=== PATIENT | male | born 1970 | race Hispanic/Latino ===

== ENCOUNTER 2018-02-15 21:03 | Emergency (ER) | payer OTHER ==
--- OUTSIDE RECORDS SUMMARY | 2018-02-15 21:04 | XMS REPORT | Clinical Summary ---
:1970 Author Organization [facility] Address [address] [place] [address] Phone Care Team Providers Name Role Phone Unavailable Primary Care Provider Unavailable Allergies No Known Allergies Current Medications Prescription Sig. Disp. Refills Start Date End Date Status lisinopril Take 40 mg by Active (PRINIVIL,ZESTRIL) mouth daily. 40 MG tablet metoprolol Take 50 mg by Active (LOPRESSOR) 50 MG mouth 2 (two) tablet times daily. aspirin 81 MG EC Take 81 mg by Active tablet mouth daily. atorvastatin Take 1 tablet 90 tablet 3 07/20/2017 07/20/2018 Active (LIPITOR) 40 MG (40 mg total) tablet by mouth daily. prasugrel (EFFIENT) Take 1 tablet 90 tablet 0 07/20/2017 Active 10 mg Tab tablet (10 mg total) by mouth daily. simvastatin (ZOCOR) Take 40 mg by 07/19/2017 Discontinued 40 MG tablet mouth nightly. amLODIPine Take 1 tablet 30 tablet 11 06/25/2016 06/25/2017 (NORVASC) 10 MG (10 mg total) tablet by mouth daily. Active Problems Problem Noted Date STEMI (ST elevation myocardial infarction) ([facility]) 07/18/2017 Acute pulmonary insufficiency following thoracic surgery ([facility]) 06/21/2016 Acute post-operative pain 06/21/2016 Cardiogenic shock ([facility]) 06/21/2016 Hypertensive urgency 06/21/2016 Thrombocytopenia ([facility]) 06/21/2016 SIRS (systemic inflammatory response syndrome) ([facility]) 06/21/2016 Coronary artery disease 06/20/2016 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) Essential hypertension 06/13/2016 Dyslipidemia 06/13/2016 Encounters Date Type Specialty Care Team Description 07/18/2017 - Hospital Encounter Cardiac Intensive Me Kristiehran, 07/19/2017 Care MD 07/18/2017 Procedure Pass 07/18/2017 Surgery Satnam Tello CATH & SAROJ Renteria MD after 02/14/2017 Family History Medical History Relation Name Comments Diabetes Father Heart disease Father Diabetes Mother Relation Name Status Comments Father Mother Social History Tobacco Use Types Packs/Day Years Used Date Former Smoker Quit: 06/21/1996 Comments: quit 25 years ago Sex Assigned at Date Recorded Not on file Last Filed Vital Signs Vital Sign Reading Time Taken Blood Pressure 157/106 07/19/2017 11:56 AM BLOCK CUTTER Pulse 51 07/19/2017 12:00 PM BLOCK CUTTER Temperature 36.9 C (98.4 F) 07/19/2017 12:00 PM BLOCK CUTTER Respiratory Rate 15 07/19/2017 12:00 PM BLOCK CUTTER Oxygen Saturation 99% 07/19/2017 12:00 PM BLOCK CUTTER Inhaled Oxygen Concentration - - Weight 133.3 kg (293 lb 14 oz) 07/19/2017 5:00 AM BLOCK CUTTER Height 162.6 cm (5' 4") 07/18/2017 4:16 PM BLOCK CUTTER Body Mass Index 50.44 07/19/2017 5:00 AM BLOCK CUTTER Plan of Treatment Health Maintenance Due Date Last Done Comments INFLUENZA VACCINE 02/09/2018 Implants Implanted Type Area Cooking Chef Device Expiration Model / Identifier Date Serial / Lot Device Clsr Angio-Seal Vip 6fr [id number] - [id number] Cardiovascular Right: ST MARIUM [id number] 03/11/2018 [id number] / Implanted: Qty: 1 on 07/18/2017 by Satnam Tello MD Coronary MED: CARDIAC / SURG [id number] Synergy Stents-Coronary N/A: [place] [id number] 02/10/2018 [id number] / Implanted: Qty: 1 on 07/18/2017 by Satnam Tello MD Coronary SCIENTIFIC / [id number] Procedures Procedure Name Priority Date/Time Associated Diagnosis Comments L CATH & PCI 07/18/2017 1:40 PM BLOCK CUTTER STEMI after 02/14/2017 Results CARDIAC CATH REPORT - SCAN (07/23/2017 9:01 PM)RHYTHM STRIP - SCAN (07/22/2017 9:10 AM)ECHOCARDIOGRAM REPORT - SCAN (07/21/2017 9:20 AM)2D Echo W/Doppler(CW /PW/Color) (07/19/2017 9:30 AM) Component Value Ref Range Ejection Fraction Specimen Performing Laboratory [facility] ECHO [facility] MKCKMARTHA CPACS Narrative Transthoracic Echocardiography Report (TTE) Demographics Patient DEMETRIUS Pennington Date of Study07/19/2017 DONNA Gender Male Visit [id number] Race Unknown [id number] Number Date of 1970 [facility] Physician JOSE ALBERTO Friedman Age 47 year(s) SonographerJuan Ramirez Interpreting Physician JULIÁN Berumen Procedure Type of Study TTE procedure:2DECHO W DOPPLER(CW/PW/COLOR) (DIVINA) Indications:Evaluation of LV Function Post AMI. Clinical History HGB 13.2 HCT 40.3 % CAD HLD HTN STROKE Contrast Medium: Definity. Height: 64 inches Weight: 132.9 kg (293 lbs) BSA: 2.3 m^2 BMI: 50.29 kg/m^2 HR: 52 bpm BP: 164/97 mmHg Summary Regular sinus rhythm during the exam. Unable to estimate peak systolic PA pressure; inadequate TR velocity signal. Essentially normal exam. LV endocardium is well visualized with IV ultrasound enhancing agent. Normal left ventricular chamber size. Normal wall thickness. Normal overall left ventricular systolic function. No apparent segmental wall motion abnormalities. LVEF by Farmer's method of disk assessment is normal (>60%) . Normal diastolic function. No significant pericardial effusion is visualized. Signature Findings Technical Quality: Technically fair exam. Rhythm/BPRegular sinus rhythm during the exam. Left Ventricle LV endocardium is well visualized with IV ultrasound enhancing agent. Normal left ventricular chamber size. Normal wall thickness. Normal overall left ventricular systolic function. No apparent segmental wall motion abnormalities. LVEF by Farmer's method of disk assessment is normal (>60%) . Normal diastolic function. Left AtriumLA size is normal (16-34 ml/m2) . Right VentricleThe right ventricular chamber size and systolic function are within normal limits. Right Atrium RA size is normal. Aortic Valve Normal AoV structure and function. Mitral Valve Normal MV structure and function. Tricuspid ValveNormal TV structure and function. Unable to estimate peak systolic PA pressure; inadequate TR velocity signal. Pulmonic Valve Normal PV structure and function. AortaAortic root size (SInus of Valsalva diameter) is normal . PericardiumNo significant pericardial effusion is visualized. IVC/SVC/PA/PV/PleuralThe estimated RA pressure by IVC dynamics 5-10mmHg . Chambers/Structures Left Atrium LA Dimension: 4.59 cmLA Area: 23.77 cm^2 LA Volume: 78.16 ml LA Vol. Index: 34 ml/m^2 Left Ventricle LVIDd: 4.96 cm LVIDs: 3.19 cm LV Septum Diastolic: 0.97 cm LV PW Diastolic: 1.2 cm LV FS: 35.7 % LVEDV Farmer's:172.03 ml LVESV Farmer's:37.4 ml LVEDVI: 75 ml/ m^2 LVEF Farmer's: 78.3 %LVESVI: 16 ml/m^2 LVOT Diameter: 2.41 cm Aorta Ao Root S of Nel.: 3.18 cm Doppler/Quantitative Measurements Mitral Valve MV Peak E-Wave: 0.74 m/sMV Peak A-Wave: 0.58 m/s E/ A Ratio: 1.27 Peak Gradient: 2.19 mmHg Deceleration Time: 236.1 msec MV Papa. Peak: Tissue Doppler E' Lateral Velocity: 0.11 m/s E/E': 6.88 Aortic Valve Peak Velocity: 1.46 m/sMean Velocity: 0.92 m/s Peak Gradient: 8.47 mmHg Mean Gradient: 4.05 mmHg AV Area (continuity): 5.03 cm^2 AV VTI: 26.65 cm AV DVI: 1.1 LVOT Peak Velocity: 1.38 m/s Peak Gradient: 7.63 mmHg Mean Velocity: 0.9 m/sMean Gradient: 3.79 mmHg LVOT Diameter: 2.41 cmLVOT VTI: 29.43 cm LVOT Area: 4.56 cm^2LVOT SV:134.18 ml LVOT CO: 6.98 l/min LVOT CI: 3.03 l/min/m^2 Procedure Note Interface, External Ris In - 07/21/2017 8:41 AM CDT Transthoracic Echocardiography Report (TTE) Demographics Patient Name DEMETRIUS SERRA Date of Study 07/19/2017 DONNA Gender Male Visit Number [id number] Race Unknown Room Number 6215 Number Date of 1970 Referring [facility] Kristie Physician JOSE ALBERTO Friedman Age 47 year(s) 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 Clinical History HGB 13.2 HCT 40.3 % CAD HLD HTN STROKE Contrast Medium: Definity. Height: 64 inches Weight: 132.9 kg (293 lbs) BSA: 2.3 m^2 BMI: 50.29 kg/m^2 HR: 52 bpm BP: 164/97 mmHg Summary Regular sinus rhythm during the exam. Unable to estimate peak systolic PA pressure; inadequate TR velocity signal. Essentially normal exam. LV endocardium is well visualized with IV ultrasound enhancing agent. Normal left ventricular chamber size. Normal wall thickness. Normal overall left ventricular systolic function. No apparent segmental wall motion abnormalities. LVEF by Farmer's method of disk assessment is normal (>60%) . Normal diastolic function. No significant pericardial effusion is visualized. Signature Findings Technical Quality: Technically fair exam. Rhythm/BP Regular sinus rhythm during the exam. Left Ventricle LV endocardium is well visualized with IV ultrasound enhancing agent. Normal left ventricular chamber size. Normal wall thickness. Normal overall left ventricular systolic function. No apparent segmental wall motion abnormalities. LVEF by Farmer's method of disk assessment is normal (>60%) . Normal diastolic function. Left Atrium LA size is normal (16-34 ml/m2) . Right Ventricle The right ventricular chamber size and systolic function are within normal limits. Right Atrium RA size is normal. Aortic Valve Normal AoV structure and function. Mitral Valve Normal MV structure and function. Tricuspid Valve Normal TV structure and function. Unable to estimate peak systolic PA pressure; inadequate TR velocity signal. Pulmonic Valve Normal PV structure and function. Aorta Aortic root size (SInus of Valsalva diameter) is normal . Pericardium No significant pericardial effusion is visualized. IVC/SVC/PA/PV/Pleural The estimated RA pressure by IVC dynamics 5-10mmHg . Chambers/Structures Left Atrium LA Dimension: 4.59 cm LA Area: 23.77 cm^2 LA Volume: 78.16 ml LA Vol. Index: 34 ml/m^2 Left Ventricle LVIDd: 4.96 cm LVIDs: 3.19 cm LV Septum Diastolic: 0.97 cm LV PW Diastolic: 1.2 cm LV FS: 35.7 % LVEDV Farmer's:172.03 ml LVESV Farmer's:37.4 ml LVEDVI: 75 ml/m^2 LVEF Farmer's: 78.3 % LVESVI: 16 ml/m^2 LVOT Diameter: 2.41 cm Aorta Ao Root S of Nel.: 3.18 cm Doppler/Quantitative Measurements Mitral Valve MV Peak E-Wave: 0.74 m/s MV Peak A-Wave: 0.58 m/s E/A Ratio: 1.27 Peak Gradient: 2.19 mmHg Deceleration Time: 236.1 msec MV Papa. Peak: Tissue Doppler E' Lateral Velocity: 0.11 m/s E/E': 6.88 Aortic Valve Peak Velocity: 1.46 m/s Mean Velocity: 0.92 m/s Peak Gradient: 8.47 mmHg Mean Gradient: 4.05 mmHg AV Area (continuity): 5.03 cm^2 AV VTI: 26.65 cm AV DVI: 1.1 LVOT Peak Velocity: 1.38 m/s Peak Gradient: 7.63 mmHg Mean Velocity: 0.9 m/s Mean Gradient: 3.79 mmHg LVOT Diameter: 2.41 cm LVOT VTI: 29.43 cm LVOT Area: 4.56 cm^2 LVOT SV:134.18 ml LVOT CO: 6.98 l/min LVOT CI: 3.03 l/min/m^2 Magnesium (07/19/2017 6:55 AM) Component Value Ref Range Magnesium 1.8 1.6 - 2.6 mg/dL Specimen Performing Laboratory Blood [address] [address] Lipid panel (07/19/2017 6:55 AM) Component Value Ref Range Triglycerides 270 mg/dL Cholesterol 157 mg/dL HDL 31 mg/dL LDL Calculated 72 mg/dL Specimen Performing Laboratory Blood [address] [address] Narrative Triglyceride Reference Range: Low Risk <150 [id number] High Risk 200-499 Very High Risk>=500 Cholesterol Reference Range: Low Risk <200 [id number] High Risk>240 HDL Cholesterol Reference Range: Low Risk >=60 High Risk <40 LDL Cholesterol Reference Range: Optimal<100 Near Fmozjso526-991 Gyxdlbkaua776-954 Rqkl668-163 Very High >=190 Basic metabolic panel (07/19/2017 6:55 AM) Component Value Ref Range Sodium 137 136 - 145 meq/L Potassium 4.0 3.5 - 5.1 meq/L Chloride 106 98 - 107 meq/L CO2 26 22 - 29 meq/L BUN 15 7 - 21 mg/dL Creatinine 0.90 0.57 - 1.25 mg/dL Glucose 98 70 - 105 mg/dL Calcium 8.8 8.4 - 10.2 mg/dL EGFR Comment: INSUFFICIENT CLINICAL DATA TO CALCULATE mL/min/1.73 sq m ESTIMATED GFR. Specimen Performing Laboratory Blood [address] [address] CBC (Hemogram only) (07/19/2017 5:46 AM) Component Value Ref Range WBC 7.5 3.5 - 10.5 K/L RBC 4.45 (L) 4.63 - 6.08 M/L Hemoglobin 13.2 (L) 13.7 - 17.5 GM/DL Hematocrit 40.3 40.1 - 51.0 % MCV 90.6 79.0 - 92.2 fL MCH 29.7 25.7 - 32.2 pg MCHC 32.8 32.3 - 36.5 GM/DL RDW 13.5 11.6 - 14.4 % Platelets 147 (L) 150 - 450 K/CU MM MPV 13.0 (H) 9.4 - 12.4 fL nRBC 0 0 - 0 /100 WBC Specimen Performing Laboratory Blood [address] [address] Hemoglobin A1c (07/19/2017 5:46 AM) Component Value Ref Range Hemoglobin A1C 5.2 4.3 - 6.1 % Specimen Performing Laboratory Blood [facility] [address] [place] [address] POC ACTIVATED CLOTTING TIME (07/18/2017 3:17 PM)Only the most recent of2 resultswithin the time period is included. Component Value Ref Range Activated Clotting Time 252Comment: TESTED AT [address] [place] [address] Specimen Performing Laboratory Blood [address] [address] after 02/14/2017
--- OUTSIDE RECORDS SUMMARY | 2018-02-15 21:04 | XMS REPORT ---
:1970 Author Organization [facility] Address [address] [place] [address] Care Team Providers Name Role Phone JARETT COMBS Unavailable Unavailable Problems This patient has no known problems. Allergies, Adverse Reactions, Alerts This patient has no known allergies or adverse reactions. Medications This patient has no known medications. Results Test Description Test Time Test Comments Text Results Atomic Results Result Comments POCT-ACT 2017-07-21 09:31:00 Test Item Value Reference Range Comments ACTIVATED CLOTTING TIME (BEAKER) (test [address] [facility] [address] [facility] vrok=042) [place] [address] [id number] 09:31:00 Test Item Value Reference Range Comments ACTIVATED CLOTTING TIME 125 sec TESTED AT [place] [id number] [facility] (BEAKER) (test ekuy=751) [facility] [address] HEMOGLOBIN [id number] 12:16:00 Test Item Value Reference Range Comments HEMOGLOBIN A1C (BEAKER) (test qybw=259) 5.2 % 4.3-6.1 LIPID [id number] 07:38:00 Test Item Value Reference Range Comments TRIGLYCERIDES (BEAKER) (test flob=077) 270 mg/dL CHOLESTEROL (BEAKER) (test esjr=888) 157 mg/dL HDL CHOLESTEROL (BEAKER) (test rvva=015) 31 mg/dL LDL CHOLESTEROL CALCULATED (BEAKER) (test 72 mg/dL utnf=170) Triglyceride Reference Range: Low Risk <150 Borderline 150- 199 High Risk 200-499 Very High Risk >=500Cholesterol Reference Range: Low Risk <200 Borderline 200-239 High Risk > 240HDL Cholesterol Reference Range: Low Risk >=60 High Risk <40LDL Cholesterol Reference Range: Optimal <100 Near Optimal 100-129 Borderline 130-159 High 160-189 Very High >=190BASIC METABOLIC [id number] 07:38:00 Test Item Value Reference Range Comments SODIUM (BEAKER) (test 137 meq/L 136-145 gbky=981) POTASSIUM (BEAKER) (test 4.0 meq/L 3.5-5.1 wsdb=579) CHLORIDE (BEAKER) (test 106 meq/L 98-107 bwdx=148) CO2 (BEAKER) (test 26 meq/L 22-29 wqpz=184) BLOOD UREA NITROGEN 15 mg/dL 7-21 (BEAKER) (test suhy=561) CREATININE (BEAKER) (test 0.90 mg/dL 0.57-1.25 osap=320) GLUCOSE RANDOM (BEAKER) 98 mg/dL 70-105 (test dkff=919) CALCIUM (BEAKER) (test 8.8 mg/dL 8.4-10.2 lbbv=100) EGFR (BEAKER) (test mL/min/1.73 sq m INSUFFICIENT CLINICAL DATA pbge=4321) TO CALCULATE ESTIMATED GFR. [id number] 07:37:00 Test Item Value Reference Range Comments MAGNESIUM (BEAKER) (test qium=034) 1.8 mg/dL 1.6-2.6 CBC (HEMOGRAM ONLY)2017-07-19 06:30:00 Test Item Value Reference Range Comments WHITE BLOOD CELL COUNT (BEAKER) (test caig=414) 7.5 K/ L 3.5-10.5 RED BLOOD CELL COUNT (BEAKER) (test exri=010) 4.45 M/ L 4.63-6.08 HEMOGLOBIN (BEAKER) (test atuy=850) 13.2 GM/DL 13.7-17.5 HEMATOCRIT (BEAKER) (test lqam=757) 40.3 % 40.1-51.0 MEAN CORPUSCULAR VOLUME (BEAKER) (test lqii=421) 90.6 fL 79.0-92.2 MEAN CORPUSCULAR HEMOGLOBIN (BEAKER) (test 29.7 pg 25.7-32.2 skda=520) MEAN CORPUSCULAR HEMOGLOBIN CONC (BEAKER) (test 32.8 GM/DL 32.3-36.5 jjvr=435) RED CELL DISTRIBUTION WIDTH (BEAKER) (test 13.5 % 11.6-14.4 dmgd=016) PLATELET COUNT (BEAKER) (test wcif=847) 147 K/CU MM 150-450 MEAN PLATELET VOLUME (BEAKER) (test ssdi=365) 13.0 fL 9.4-12.4 NUCLEATED RED BLOOD CELLS (BEAKER) (test 0 /100 WBC 0-0 tbyo=097)
[2018-02-15 21:42] LABS: Absolute Lymphocytes (CBC) 2.2 K/uL (0.7-4.9); Absolute Monocytes 0.5 K/uL (0.1-1.3); Absolute Neutrophil 4.9 K/uL (1.8-8.0); Basophils % 0.8 % (0-1.3); Hematocrit 42.5 % (39.6-49.0); MCH 30.6 pg (27.0-35.0); MCV 89.9 fL (80-100); MPV 10.7 fL (7.6-11.3); RBC Red Blood Cell Count 4.73 M/uL (4.33-5.43)
[2018-02-15 21:45] LABS: Protime INR 0.97
--- NOTE | 2018-02-15 21:55 | RAD REPORT ---
EXAM DESCRIPTION: RAD - Chest Single View - 02/15/2018 9:38 pm CLINICAL HISTORY: CHEST PAIN Chest pain. COMPARISON: Chest Single View dated 07/18/2017; CHEST SINGLE VIEW dated 12/13/2014; CHEST SINGLE VIEW da bob 09/22/2013; CHEST SINGLE VIEW dated 10/15/2011 FINDINGS: Portable technique limits examination quality. The lungs are grossly clear. The heart is mildly to moderately enlarged. No displaced fractures.Grant otomy wires present. IMPRESSION: No acute intrathoracic process suspected.
[2018-02-15 21:57] LABS: ALT/SGPT 29 U/L (12-78); AST/SGOT 17 U/L (15-37); Albumin 3.7 g/dL (3.4-5.0); Alkaline Phosphatase 90 U/L (45-117); BUN Blood Urea Nitrogen 15 mg/dL (7-18); Bicarbonate 27 mmol/L (21-32); Bilirubin Direct < 0.1 mg/dL (0-0.2); Bilirubin Total 0.4 mg/dL (0.2-1.0); Glucose Level 119 mg/dL (74-106); Magnesium 1.9 mg/dL (1.8-2.4); NT PRO-BNP 96 pg/mL (<125); Potassium 3.8 mmol/L (3.5-5.1); Protein, Total 7.7 g/dL (6.4-8.2); Sodium Level 141 mmol/L (136-145); Troponin (Emerg Dept Use Only) < 0.02 ng/mL (0.0-0.045)
--- NOTE | 2018-02-15 23:26 | ER ---
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 Patient denies nausea or vomiting and chest pain at this moment. Transition of care: patient was not received from another setting of care. Onset of symptoms was February 15, 2018 at 20:00. Risk Assessment: Do you want to hurt yourself or someone else? Patient reports no desire to harm self or others. Initial Sepsis Screen: Does the patient meet any 2 criteria? No. Patient's initial sepsis screen is negative. Does the patient have a suspected source of infection? No. Patient's initial sepsis screen is negative. Care prior to arrival: None. 21:19 Method Of Arrival: Ambulatory ao 21:19 Acuity: JING 2 ao Historical: - Allergies: 21:23 No Known Allergies; ao - Home Meds: 21:18 atorvastatin 40 mg oral tab 1 tab once daily [Active]; nitroglycerin 0.4 mg SL subl 1 aj1 tab every 5 minutes [Active]; amitriptyline 10 mg Oral tab 1 tab at bedtime [Active]; prasugrel oral 10 mg oral once daily [Active]; metoprolol tartrate 50 mg Oral tab 1 tab 2 times per day [Active]; lisinopril 40 mg Oral tab 1 tab once daily [Active]; - PMHx: 21:23 High Cholesterol; Hypertension; Myocardial infarction; ao - PSHx: 21:23 open heart surgery; ao - Immunization history:: Adult Immunizations up to date. - Social history:: Smoking status: Patient/guardian denies using tobacco, Patient/guardian denies using alcohol, street drugs. - Ebola Screening: : Patient negative for fever greater than or equal to 101.5 degrees Fahrenheit, and additional compatible Ebola Virus Disease symptoms Patient denies exposure to infectious person Patient denies travel to an Ebola-affected area in the 21 days before illness onset. Screenin:23 Abuse screen: Denies threats or abuse. Denies injuries from another. Nutritional ao screening: No deficits noted. Tuberculosis screening: No symptoms or risk factors identified. Fall Risk None identified. Assessment: 21:24 Reassessment: Patient appears in no apparent distress at this time. General: Appears in ao no apparent distress. comfortable, Behavior is calm, cooperative, appropriate for age. Pain: Complains of pain in chest Pain does not radiate. Pain currently is 0 out of 10 on a pain scale. Pain began 1 day ago. Neuro: Level of Consciousness is awake, alert, obeys commands, Oriented to person, place, time, situation, Appropriate for age Moves all extremities. Full function Speech is normal, Cardiovascular: Capillary refill < 3 seconds Patient's skin is warm and dry. Cardiovascular: Reports palpitations, Denies nausea, shortness of breath, vomiting. Respiratory: Airway is patent Respiratory effort is even, unlabored, Respiratory pattern is regular, symmetrical, Breath sounds are clear bilaterally. GI: Abdomen is round Bowel sounds present X 4 quads. : No signs and/or symptoms were reported regarding the genitourinary system. EENT: No signs and/or symptoms were reported regarding the EENT system. Derm: No signs and/or symptoms reported regarding the dermatologic system. 22:32 Reassessment: Patient appears in no apparent distress at this time. Patient and/or ao family updated on plan of care and expected duration. Pain level reassessed. Patient is alert, oriented x 3, equal unlabored respirations, skin warm/dry/pink. 23:39 Reassessment: DC instructions given to patient. Patient agree to follow up with PCP and ao Dr Sampson. Vital Signs: 21:15 BP 158 / 102; Pulse 60; Resp 14; Temp 97.8(TE); Pulse Ox 97% on R/A; aj1 22:32 BP 152 / 83; Pulse 55; Resp 16; Pulse Ox 96% on R/A; Pain 0/10; ao 23:25 BP 152 / 83; Pulse 55; Resp 18; Pulse Ox 95% on R/A; ea 23:39 BP 157 / 92; Pulse 59; Resp 16; Pulse Ox 96% on R/A; Pain 0/10; ao ED Course: 21:04 Patient arrived in ED. al2 21:05 Kannan Smapson MD is Private Physician. al2 21:18 Rodrigo Sandy MD is Attending Physician. tw4 21:18 Arm band placed on Patient placed in an exam room. aj1 21:21 Triage completed. ao 21:21 Inserted saline lock: 20 gauge in left antecubital area, using aseptic technique. Blood jb5 collected. 21:26 Patient has correct armband on for positive identification. Fall risk band placed. Bed ao in low position. Side rails up X 1. conveyor monitor on. Pulse ox on. NIBP on. 21:26 Patient maintains SpO2 saturation greater than 95% on room air. ao 21:31 Basic Metabolic Panel Sent. jb5 21:31 CBC with Diff Sent. jb5 21:31 LFT's Sent. jb5 21:31 Magnesium Sent. jb5 21:31 NT PRO-BNP Sent. jb5 21:31 PT-INR Sent. jb5 21:31 Troponin (emerg Dept Use Only) Sent. jb5 21:38 XRAY Chest (1 view) In Process Unspecified. EDMS 21:57 Nii Hein, RN is Primary Nurse. ao 23:25 Kannan Sampson MD is Referral Physician. tw4 23:38 No provider procedures requiring assistance completed. IV discontinued, intact, ao bleeding controlled, No redness/swelling at site. Pressure dressing applied. Administered Medications: No medications were administered Outcome: 23:26 Discharge ordered by . tw4 23:38 Discharged to home ambulatory. ao 23:38 Condition: stable 23:38 Discharge instructions given to patient, Instructed on discharge instructions, follow up and referral plans. Demonstrated understanding of instructions, follow-up care, medications. 23:41 Patient left the ED. ao Signatures: Dispatcher [employer] EDLA Beatrice Batista RN RN aj1 Ortiz, Alex, RN Beba Moon jb5 Cat Ashton, Iqra Jorge RN, ea, Terrence, MD MD tw4
--- NOTE | 2018-02-15 23:27 | EDPHYS ---
Physician Documentation [facility] Name: Cesar Ching Age: 47 yrs Sex: Male : 1970 Arrival Date: 02/15/2018 Time: 21:04 Bed 4 Private MD: Kannan Sampson L ED Physician Rodrigo Sandy HPI: 02/15 23:22 This 47 yrs old Male presents to ER via Ambulatory with complaints of tw4 Irregular Pulse. Historical: - Allergies: 21:23 No Known Allergies; ao - Home Meds: 21:18 atorvastatin 40 mg oral tab 1 tab once daily [Active]; nitroglycerin 0.4 mg SL subl 1 aj1 tab every 5 minutes [Active]; amitriptyline 10 mg Oral tab 1 tab at bedtime [Active]; prasugrel oral 10 mg oral once daily [Active]; metoprolol tartrate 50 mg Oral tab 1 tab 2 times per day [Active]; lisinopril 40 mg Oral tab 1 tab once daily [Active]; - PMHx: 21:23 High Cholesterol; Hypertension; Myocardial infarction; ao - PSHx: 21:23 open heart surgery; ao - Immunization history:: Adult Immunizations up to date. - Social history:: Smoking status: Patient/guardian denies using tobacco, Patient/guardian denies using alcohol, street drugs. - Ebola Screening: : Patient negative for fever greater than or equal to 101.5 degrees Fahrenheit, and additional compatible Ebola Virus Disease symptoms Patient denies exposure to infectious person Patient denies travel to an Ebola-affected area in the 21 days before illness onset. ROS: 23:42 Constitutional: Negative for fever, chills, and weight loss, Eyes: Negative for injury, tw4 pain, redness, and discharge, Respiratory: Negative for shortness of breath, cough, wheezing, and pleuritic chest pain, Abdomen/GI: Negative for abdominal pain, nausea, vomiting, diarrhea, and constipation, : Negative for injury, bleeding, discharge, and swelling, MS/Extremity: Negative for injury and deformity, Neuro: Negative for headache, weakness, numbness, tingling, and seizure. 23:42 Cardiovascular: Positive for palpitations, Negative for chest pain, edema, orthopnea. Exam: 23:42 Constitutional: This is a well developed, well nourished patient who is awake, alert, tw4 and in no acute distress. Head/Face: Normocephalic, atraumatic. Chest/axilla: Normal chest wall appearance and motion. Nontender with no deformity. No lesions are appreciated. Cardiovascular: Regular rate and rhythm with a normal S1 and S2. No gallops, murmurs, or rubs. Normal PMI, no JVD. No pulse deficits. Respiratory: Lungs have equal breath sounds bilaterally, clear to auscultation and percussion. No rales, rhonchi or wheezes noted. No increased work of breathing, no retractions or nasal flaring. Abdomen/GI: Soft, non-tender, with normal bowel sounds. No distension or tympany. No guarding or rebound. No evidence of tenderness throughout. Back: No spinal tenderness. No costovertebral tenderness. Full range of motion. MS/ Extremity: Pulses equal, no cyanosis. Neurovascular intact. Full, normal range of motion. Neuro: Awake and alert, GCS 15, oriented to person, place, time, and situation. Cranial nerves II-XII grossly intact. Motor strength 5/5 in all extremities. Sensory grossly intact. Cerebellar exam normal. Normal gait. Psych: Awake, alert, with orientation to person, place and time. Behavior, mood, and affect are within normal limits. Vital Signs: 21:15 BP 158 / 102; Pulse 60; Resp 14; Temp 97.8(TE); Pulse Ox 97% on R/A; aj1 22:32 BP 152 / 83; Pulse 55; Resp 16; Pulse Ox 96% on R/A; Pain 0/10; ao 23:25 BP 152 / 83; Pulse 55; Resp 18; Pulse Ox 95% on R/A; ea 23:39 BP 157 / 92; Pulse 59; Resp 16; Pulse Ox 96% on R/A; Pain 0/10; ao MDM: 21:18 Patient medically screened. tw4 23:42 Differential diagnosis: arrythmia, dehydration, stress disorder. Data reviewed: vital tw4 signs, nurses notes. 02/15 21:19 Order name: Basic Metabolic Panel; Complete Time: 23:23 tw4 02/15 23:24 Interpretation: Normal except: GLUC 119. tw4 02/15 21:19 Order name: CBC with Diff; Complete Time: 23:23 tw4 02/15 23:24 Interpretation: Within normal limits. 4 02/15 21:19 Order name: LFT's; Complete Time: 23:23 tw4 02/15 23:24 Interpretation: Normal except: GLOB 4.0; A/G 0.9. 4 02/15 21:19 Order name: Magnesium; Complete Time: 23:23 tw4 02/15 23:24 Interpretation: Within normal limits: MG 1.9. 02/15 21:19 Order name: NT PRO-BNP; Complete Time: 23:23 tw4 02/15 23:24 Interpretation: NT PRO-BNP 96. tw02/15 21:19 Order name: PT-INR; Complete Time: 23:23 tw4 02/15 23:24 Interpretation: Within normal limits: PT 11.4. 02/15 21:19 Order name: Troponin (emerg Dept Use Only); Complete Time: 23:23 tw4 02/15 23:24 Interpretation: Within normal limits: TROPED < 0.02. 02/15 21:19 Order name: XRAY Chest (1 view); Complete Time: 23:23 tw4 02/15 23:24 Interpretation: No acute disease. 02/15 21:19 Order name: EKG; Complete Time: 21:20 4 02/15 21:19 Order name: Cardiac monitoring; Complete Time: 21:27 4 02/15 21:19 Order name: EKG - Nurse/Tech; Complete Time: 21:27 4 02/15 21:19 Order name: IV Saline Lock; Complete Time: 21:27 02/15 21:19 Order name: Labs collected and sent; Complete Time: 21:28 4 02/15 21:19 Order name: O2 Per Protocol; Complete Time: 21:28 4 02/15 21:19 Order name: O2 Sat Monitoring; Complete Time: 21:28 4 EC:42 Rate is 58 beats/min. Rhythm is regular. QRS [place] is Normal. NC interval is normal. QRS tw4 interval is normal. QT interval is normal. No Q waves. T waves are Inverted in lead aVL. No ST changes noted. Clinical impression: Abnormal EKG without significant change. Interpreted by me. Reviewed by me. Administered Medications: No medications were administered Disposition: 02/15/18 23:26 Discharged to Home. Impression: Palpitations. - Condition is Stable. - Discharge Instructions: Palpitations, Palpitations, [id number]. - Medication Reconciliation Form, Thank You Letter, Antibiotic Education, Prescription Opioid Use form. - Follow up: Kannan Sampson MD; When: Upon discharge from the Emergency Department; Reason: Further diagnostic work-up, Recheck today's complaints, Continuance of care, Re-evaluation by your physician. - Problem is new. - Symptoms have improved. Signatures: Dispatcher [employer] EDGA Beatrice Batista RN RN aj1 Nii Hein RN RN ao Rodrigo Sandy MD MD tw4 Corrections: (The following items were deleted from the chart) 23:41 23:26 02/15/2018 23:26 Discharged to Home. Impression: Palpitations. Condition is ao Stable. Forms are Medication Reconciliation Form, Thank You Letter, Antibiotic Education, Prescription Opioid Use. Follow up: Kannan Sampson; When: Upon discharge from the Emergency Department; Reason: Further diagnostic work-up, Recheck today's complaints, Continuance of care, Re-evaluation by your physician. Problem is new. Symptoms have improved. tw4
[2018-02-15 23:47] VITALS: TEMP 97.8
[2018-02-15 23:51] VITALS: BP 157/92; O2SAT 96
--- NOTE | 2018-02-16 07:28 | EKG ---
Test Date: 2018-02-15 Test Time: 21:16:25 Speech Therapy Teacher: RADHA MEASUREMENT RESULTS: Intervals: Rate: 58 IN: 134 QRSD: 104 QT: 422 QTc: 414 [place]: P: 51 IN: 134 QRS: 60 T: 98 INTERPRETIVE STATEMENTS: Sinus bradycardia ST & T wave abnormality, consider lateral ischemia Abnormal ECG Compared to ECG 07/18/2017 12:10:58 Possible ischemia now present Sinus rhythm no longer present Myocardial infarct finding no longer present Electronically Signed On 02-16-18 07:27:41 CDT by Kannan Sampson
== END 2018-02-15 23:41 | disposition home or self-care (01) ==
LOC: ER 21:03
DX: R00.2 Palpitations (principal); E78.00 Pure hypercholesterolemia, unspecified; I10 Essential (primary) hypertension; I25.2 Old myocardial infarction
CPT/HCPCS: 36415; 71045; 80048; 80076; 83735; 83880; 84484; 85025; 85610; 93005; 99285

== ENCOUNTER 2018-09-28 16:11 | Emergency (ER) | payer OTHER ==
--- OUTSIDE RECORDS SUMMARY | 2018-09-28 16:14 | XMS REPORT ---
:1970 [facility] Address [address] [place] [address] Care Team Providers Name Role Phone JARETT [...] TIME (BEAKER) (test 252 sec TESTED AT [facility] [address] [facility] kucn[address]) [place] [address] [id number] 09:31:00 Test Item Value Reference Range Comments ACTIVATED CLOTTING TIME 125 sec TESTED AT [address] (BEAKER) (test gttc=551) [facility] [address] HEMOGLOBIN [id number] 12:16:00 Test Item Value Reference Range Comments HEMOGLOBIN A1C (BEAKER) (test vjgd=139) 5.2 % 4.3-6.1 LIPID [id number] 07:38:00 Test Item Value Reference Range Comments TRIGLYCERIDES (BEAKER) (test navx=509) 270 mg/dL CHOLESTEROL (BEAKER) (test qjka=907) 157 mg/dL HDL CHOLESTEROL (BEAKER) (test lshn=746) 31 mg/dL LDL CHOLESTEROL CALCULATED (BEAKER) (test 72 mg/dL twxd=268) Triglyceride Reference Range: Low Risk <150 Borderline 150- 199 High Risk 200-499 Very High Risk >=500Cholesterol Reference Range: Low Risk <200 Borderline 200-239 High Risk > 240HDL Cholesterol Reference Range: Low Risk >=60 High Risk <40LDL Cholesterol Reference Range: Optimal <100 Near Optimal 100-129 Borderline 130-159 High 160-189 Very High >=190BASI METABOLIC [id number] 07:38:00 Test Item Value Reference Range Comments SODIUM (BEAKER) (test 137 meq/L 136-145 hayb=844) POTASSIUM (BEAKER) (test 4.0 meq/L 3.5-5.1 stdl=360) CHLORIDE (BEAKER) (test 106 meq/L 98-107 myay=606) CO2 (BEAKER) (test 26 meq/L 22-29 pgkz=976) BLOOD UREA NITROGEN 15 mg/dL 7-21 (BEAKER) (test mggc=745) CREATININE (BEAKER) (test 0.90 mg/dL 0.57-1.25 dfjt=354) GLUCOSE RANDOM (BEAKER) 98 mg/dL 70-105 (test lfji=913) CALCIUM (BEAKER) (test 8.8 mg/dL 8.4-10.2 enap=047) EGFR (BEAKER) (test mL/min/1.73 sq m INSUFFICIENT CLINICAL DATA hzqg=2221) TO CALCULATE ESTIMATED GFR. [id number] 07:37:00 Test Item Value Reference Range Comments MAGNESIUM (BEAKER) (test yyeu=613) 1.8 mg/dL 1.6-2.6 CBC (HEMOGRAM ONLY)2017-07-19 06:30:00 Test Item Value Reference Range Comments WHITE BLOOD CELL COUNT (BEAKER) (test qjob=213) 7.5 K/ L 3.5-10.5 RED BLOOD CELL COUNT (BEAKER) (test oqgl=737) 4.45 M/ L 4.63-6.08 HEMOGLOBIN (BEAKER) (test vszp=385) 13.2 GM/DL 13.7-17.5 HEMATOCRIT (BEAKER) (test bbbp=087) 40.3 % 40.1-51.0 MEAN CORPUSCULAR VOLUME (BEAKER) (test jokr=489) 90.6 fL 79.0-92.2 MEAN CORPUSCULAR HEMOGLOBIN (BEAKER) (test 29.7 pg 25.7-32.2 mtoa=675) MEAN CORPUSCULAR HEMOGLOBIN CONC (BEAKER) (test 32.8 GM/DL 32.3-36.5 wbps=101) RED CELL DISTRIBUTION WIDTH (BEAKER) (test 13.5 % 11.6-14.4 hqnm=772) PLATELET COUNT (BEAKER) (test sqln=270) 147 K/CU MM 150-450 MEAN PLATELET VOLUME (BEAKER) (test rxsy=458) 13.0 fL 9.4-12.4 NUCLEATED RED BLOOD CELLS (BEAKER) (test 0 /100 WBC 0-0 vdxp=958)
--- OUTSIDE RECORDS SUMMARY | 2018-09-28 16:14 | XMS REPORT | Clinical Summary ---
:1970 Author Organization [facility] Address [address] [place] [id number] Care Team Providers Name Role Phone Thelma Primary Care Provider Allergies No Known Allergies Medications Medication Sig Dispensed Refills Start Date End Date Status lisinopril Take 40 mg by 0 Active (PRINIVIL,ZESTRIL) 40 mouth daily. MG tablet metoprolol (LOPRESSOR) Take 50 mg by 0 Active 50 MG tablet mouth 2 (two) times daily. aspirin 81 MG EC Take 81 mg by 0 Active tablet mouth daily. prasugrel (EFFIENT) 10 Take 1 tablet 90 tablet 0 07/20/2017 Active mg Tab tablet (10 mg total) by mouth daily. atorvastatin (LIPITOR) Take 1 tablet 90 tablet 3 07/20/2017 07/20/2018 40 MG tablet (40 mg total) by mouth daily. 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 Last Filed Vital Signs Not on file Plan of Treatment Not on file Implants Implanted Type Area Aerial Survey Technician Device Shelf Model / Identifier Expiration Serial / Date Lot Device Clsr Angio-Seal Vip 6fr [id number] - [id number] Cardiovascular Right: [employer]UM [id number] 03/11/2018 [id number] / Implanted: Qty: 1 on 07/18/2017 by Satnam Tello MD Coronary MED: CARDIAC / SURG [id number] Synergy Stents-Coronary N/A: [place] [id number] 02/10/2018 [id number] / Implanted: Qty: 1 on 07/18/2017 by Satnam Tello MD Coronary SCIENTIFIC / [id number] Results Not on fileafter 09/27/2017 Insurance Payer Benefit Plan / Group Subscriber ID Type Phone Address MEDICARE MEDICARE A B xxxxxxxxxx Medicare MEDICAID MEDICAID [place] xxxxxxxxx Medicaid Advance Directives For more information, please contact:[address] [phone] Code Status Date Activated Date Inactivated Comments Full Code 07/18/2017 4:09 PM 07/19/2017 3:01 PM This code status was determined by: Patient Full Code 06/20/2016 11:08 AM 06/25/2016 8:40 PM This code status was determined by: Patient Full Code 06/13/2016 9:08 AM 06/14/2016 4:27 AM This code status was determined by: Patient
[2018-09-28 17:06] LABS: Absolute Lymphocytes (CBC) 0.8 K/uL (0.7-4.9); Absolute Monocytes 0.5 K/uL (0.1-1.3); Absolute Neutrophil 6.9 K/uL (1.8-8.0); Basophils % 0.3 % (0-1.3); Eosinophils % 0.4 % (0-4.4); Hematocrit 45.2 % (39.6-49.0); MPV 10.8 fL (7.6-11.3); Monocytes % 6.1 % (3.3-12.3); RBC Red Blood Cell Count 5.06 M/uL (4.33-5.43)
[2018-09-28] MEDS ORDERED: NA CHLORIDE 0.9% 1,000 ML ONE (17:07)
[2018-09-28] MEDS ORDERED: KETOROLAC 30 MG/ML INJ ONE (17:07)
[2018-09-28 17:20] LABS: Albumin 3.7 g/dL (3.4-5.0); Bilirubin Direct 0.2 mg/dL (0-0.2); Bilirubin Total 1.2 mg/dL (0.2-1.0); Potassium 3.9 mmol/L (3.5-5.1); Protein, Total 7.7 g/dL (6.4-8.2)
[2018-09-28] MEDS ORDERED: METRONIDAZOLE 500mg IVPB 500 MG/100 ML BAG IV ONE (17:32)
[2018-09-28] MEDS ORDERED: CEFTRIAXONE/SWI 1gm 1 GM/10 ML SYR ONE (17:32)
--- NOTE | 2018-09-28 17:33 | ER ---
Nurse's Notes [facility] Name: Cesar Ching Age: 48 yrs Sex: Male : 1970 Arrival Date: 09/28/2018 Time: 16:13 Bed 5 Private MD: Diagnosis: Influenza due to other identified influenza virus Presentation: 09/28 16:23 Presenting complaint: Patient states: i had a fever that started yesterday with hj diarrhea; denies abd pain;. Transition of care: patient was not received from another setting of care. Onset of symptoms was September 28, 2018. Risk Assessment: Do you want to hurt yourself or someone else? Patient reports no desire to harm self or others. Initial Sepsis Screen: Does the patient meet any 2 criteria? No. Patient's initial sepsis screen is negative. Does the patient have a suspected source of infection? No. Patient's initial sepsis screen is negative. Care prior to arrival: None. 16:23 Method Of Arrival: Ambulatory 16:23 Acuity: JING 4 hj Triage Assessment: 16:26 General: Appears in no apparent distress. uncomfortable, obese, Behavior is calm, hj cooperative, appropriate for age. Pain: Denies pain. Historical: - Allergies: 16:25 No Known Allergies; hj - Home Meds: 16:25 amitriptyline 10 mg Oral tab 1 tab at bedtime [Active]; atorvastatin 40 mg Oral tab 1 hj tab once daily [Active]; lisinopril 40 mg Oral tab 1 tab once daily [Active]; metoprolol tartrate 50 mg Oral tab 1 tab 2 times per day [Active]; nitroglycerin 0.4 mg SL subl 1 tab every 5 minutes [Active]; prasugrel 10 mg Oral once daily [Active]; - PMHx: 16:25 High Cholesterol; Hypertension; Myocardial infarction; hj - PSHx: 16:25 open heart surgery; hj - Immunization history:: Adult Immunizations up to date. - Social history:: Smoking status: Patient/guardian denies using tobacco, Patient/guardian denies using alcohol. - Ebola Screening: : Patient negative for fever greater than or equal to 101.5 degrees Fahrenheit, and additional compatible Ebola Virus Disease symptoms Patient denies exposure to infectious person Patient denies travel to an Ebola-affected area in the 21 days before illness onset. Screenin:25 Abuse screen: Denies threats or abuse. Denies injuries from another. Nutritional hj screening: No deficits noted. Tuberculosis screening: No symptoms or risk factors identified. Fall Risk None identified. Assessment: 16:27 General: Appears in no apparent distress. comfortable, Behavior is calm, cooperative, hj appropriate for age. Pain: Denies pain. Neuro: Level of Consciousness is awake, alert, obeys commands, Oriented to person, place, time, situation, Appropriate for age. Cardiovascular: Denies chest pain, Capillary refill < 3 seconds Patient's skin is warm and dry. Respiratory: Airway is patent Respiratory effort is even, unlabored, Respiratory pattern is regular, symmetrical. GI: No signs and/or symptoms were reported involving the gastrointestinal system. : No signs and/or symptoms were reported regarding the genitourinary system. EENT: No signs and/or symptoms were reported regarding the EENT system. Derm: No signs and/or symptoms reported regarding the dermatologic system. Musculoskeletal: No signs and/or symptoms reported regarding the musculoskeletal system. 17:07 Reassessment: awaiting results and POC:. hj 17:41 Reassessment: Patient and/or family updated on plan of care and expected duration. Pain hj level reassessed. Patient is alert, oriented x 3, equal unlabored respirations, skin warm/dry/pink. for D/C; awaiting IV meds and fluids to be finished;. Vital Signs: 16:26 BP 113 / 89; Pulse 110; Resp 18; Temp 100.3(O); Pulse Ox 96% on R/A; Weight 90.72 kg; hj Height 5 ft. 5 in. (165.10 cm); Pain 0/10; 17:06 BP 108 / 92; Pulse 105; Resp 18; Pulse Ox 97% on R/A; hj 17:42 BP 126 / 78; Pulse 81; Resp 18; Temp 99.1(O); Pulse Ox 95% on R/A; hj 16:26 Body Mass Index 33.28 (90.72 kg, 165.10 cm) ED Course: 16:13 Patient arrived in ED. as 16:18 Ty Lindquist MD is Attending Physician. ma2 16:22 Alan Llamas RN is Primary Nurse. hj 16:23 Triage completed. hj 16:27 Arm band placed on right wrist. hj 16:27 Patient has correct armband on for positive identification. Bed in low position. Call light in reach. 16:41 Strep Sent. hj 16:41 Influenza Screen (a \T\ B) Sent. hj 16:50 Initial lab(s) drawn, by ny, sent to lab. Inserted saline lock: 22 gauge in right hj antecubital area, using aseptic technique. Blood collected. 16:58 Basic Metabolic Panel Sent. hj 16:58 Basic Metabolic Panel Sent. hj 16:58 CBC with Diff Sent. hj 16:59 Creatinine for Radiology Sent. hj 16:59 Hepatic Function Sent. hj 16:59 Lipase Sent. hj 16:59 Strep Sent. hj 16:59 Influenza Screen (a \T\ B) Sent. hj 18:01 No provider procedures requiring assistance completed. IV discontinued, intact, hj bleeding controlled, No redness/swelling at site. Pressure dressing applied. Administered Medications: 16:50 Drug: NS 0.9% 1000 ml Route: IV; Rate: 1 bolus; Site: right antecubital; hj 16:50 Drug: TORadol 30 mg Route: IVP; Site: right antecubital; hj 17:14 Follow up: Response: No adverse reaction; Pain is decreased hj 17:17 Drug: Rocephin 1 grams Route: IV; Rate: calculated rate; Site: right antecubital; hj 17:24 Drug: Flagyl 500 mg Volume: 100 ml; Route: IVPB; Rate: 200 ml/hr; Infused Over: 30 hj mins; Site: right antecubital; 17:32 Drug: Tamiflu 75 mg Route: PO; hj 17:38 Follow up: Response: No adverse reaction Outcome: 17:32 Discharge ordered by . maVinod 18:02 Discharged to home ambulatory, with family. hj 18:02 Condition: stable 18:02 Discharge instructions given to patient, family, Instructed on discharge instructions, follow up and referral plans. medication usage, Demonstrated understanding of instructions, follow-up care, medications, Prescriptions given X 1. 18:07 Patient left the ED. Signatures: Rubi Meza Henry, RN RN hj Alzahri, Mohammad, MD MD ma2
--- NOTE | 2018-09-28 17:33 | EDPHYS ---
Physician Documentation [facility] Name: Cesar Ching Age: 48 yrs Sex: Male : 1970 Arrival Date: 09/28/2018 Time: 16:13 Bed 5 Private MD: ED Physician Ty Lindquist HPI: 09/28 16:43 This 48 yrs old Male presents to ER via Ambulatory with complaints of Flu ma2 Symptoms. 16:43 The patient presents with diarrhea. Onset: The symptoms/episode began/occurred ma2 gradually, 3 day(s) ago. Associated signs and symptoms: Pertinent negatives: blood in stools, dysuria, vomiting, vomiting blood. Severity of pain: At its worst the pain was moderate in the emergency department the pain is unchanged. Historical: - Allergies: 16:25 No Known Allergies; hj - Home Meds: 16:25 amitriptyline 10 mg Oral tab 1 tab at bedtime [Active]; atorvastatin 40 mg Oral tab 1 hj tab once daily [Active]; lisinopril 40 mg Oral tab 1 tab once daily [Active]; metoprolol tartrate 50 mg Oral tab 1 tab 2 times per day [Active]; nitroglycerin 0.4 mg SL subl 1 tab every 5 minutes [Active]; prasugrel 10 mg Oral once daily [Active]; - PMHx: 16:25 High Cholesterol; Hypertension; Myocardial infarction; hj - PSHx: 16:25 open heart surgery; hj - Immunization history:: Adult Immunizations up to date. - Social history:: Smoking status: Patient/guardian denies using tobacco, Patient/guardian denies using alcohol. - Ebola Screening: : Patient negative for fever greater than or equal to 101.5 degrees Fahrenheit, and additional compatible Ebola Virus Disease symptoms Patient denies exposure to infectious person Patient denies travel to an Ebola-affected area in the 21 days before illness onset. ROS: 16:43 Constitutional: Negative for fever, chills, and weight loss, Cardiovascular: Negative ma2 for chest pain, palpitations, and edema. 16:43 Abdomen/GI: Positive for diarrhea, Negative for nausea and vomiting, vomiting, bowel incontinence. 16:43 All other systems are negative. Exam: 16:43 Constitutional: This is a well developed, well nourished patient who is awake, alert, ma2 and in no acute distress. Chest/axilla: Normal chest wall appearance and motion. Nontender with no deformity. No lesions are appreciated. Cardiovascular: Regular rate and rhythm with a normal S1 and S2. No gallops, murmurs, or rubs. Normal PMI, no JVD. No pulse deficits. Respiratory: Lungs have equal breath sounds bilaterally, clear to auscultation and percussion. No rales, rhonchi or wheezes noted. No increased work of breathing, no retractions or nasal flaring. Abdomen/GI: Soft, non-tender, with normal bowel sounds. No distension or tympany. No guarding or rebound. No evidence of tenderness throughout. Skin: Warm, dry with normal turgor. Normal color with no rashes, no lesions, and no evidence of cellulitis. Neuro: Awake and alert, GCS 15, oriented to person, place, time, and situation. Cranial nerves II-XII grossly intact. Motor strength 5/5 in all extremities. Sensory grossly intact. Cerebellar exam normal. Normal gait. Vital Signs: 16:26 BP 113 / 89; Pulse 110; Resp 18; Temp 100.3(O); Pulse Ox 96% on R/A; Weight 90.72 kg; Height 5 ft. 5 in. (165.10 cm); Pain 0/10; 17:06 BP 108 / 92; Pulse 105; Resp 18; Pulse Ox 97% on R/A; hj 17:42 BP 126 / 78; Pulse 81; Resp 18; Temp 99.1(O); Pulse Ox 95% on R/A; 16:26 Body Mass Index 33.28 (90.72 kg, 165.10 cm) MDM: 16:18 Patient medically screened. [facility] 16:43 Differential diagnosis: gastritis, gastroesophageal reflux disease, pancreatitis, ma2 urinary tract infection. 17:31 Data reviewed: vital signs, nurses notes. Counseling: I had a detailed discussion with [facility] the patient and/or guardian regarding: the historical points, exam findings, and any diagnostic results supporting the discharge/admit diagnosis, the presence of at least one elevated blood pressure reading (>120/80) during this emergency department visit, the need for outpatient follow up. Response to treatment: the patient's symptoms have markedly improved after treatment. 09/28 16:18 Order name: Influenza Screen (a \T\ B); Complete Time: 17:30 ny2 09/28 16:18 Order name: Strep; Complete Time: 17:30 ny2 09/28 16:42 Order name: Basic Metabolic Panel ny2 09/28 16:42 Order name: CBC with Diff; Complete Time: 17:14 ny2 09/28 16:42 Order name: Creatinine for Radiology; Complete Time: 17:30 ny2 09/28 16:42 Order name: Hepatic Function; Complete Time: 17:30 ny2 09/28 16:42 Order name: Lipase; Complete Time: 17:30 ma2 09/28 16:42 Order name: Basic Metabolic Panel; Complete Time: 17:30 EDNC 09/28 17:27 Order name: Throat Culture [facility] 09/28 16:42 Order name: IV Saline Lock; Complete Time: 16:58 ma2 09/28 16:42 Order name: Labs collected and sent; Complete Time: 16:58 ma2 Administered Medications: 16:50 Drug: NS 0.9% 1000 ml Route: IV; Rate: 1 bolus; Site: right antecubital; hj 16:50 Drug: TORadol 30 mg Route: IVP; Site: right antecubital; hj 17:14 Follow up: Response: No adverse reaction; Pain is decreased hj 17:17 Drug: Rocephin 1 grams Route: IV; Rate: calculated rate; Site: right antecubital; hj 17:24 Drug: Flagyl 500 mg Volume: 100 ml; Route: IVPB; Rate: 200 ml/hr; Infused Over: 30 hj mins; Site: right antecubital; 17:32 Drug: Tamiflu 75 mg Route: PO; hj 17:38 Follow up: Response: No adverse reaction hj Disposition: 09/28/18 17:32 Discharged to Home. Impression: Influenza due to other identified influenza virus. - Condition is Stable. - Prescriptions for Tamiflu 75 mg Oral Capsule - take 1 tablet by ORAL route every 12 hours for 5 days; 10 tablet. - Medication Reconciliation Form, Thank You Letter, Antibiotic Education, Prescription Opioid Use form. - Follow up: Private Physician; When: Tomorrow; Reason: Continuance of care. Signatures: Dispatcher [employer] Alan Angeles RN RN hj Alzahri, Mohammad, MD MD ma2 Corrections: (The following items were deleted from the chart) 18:07 17:32 09/28/2018 17:32 Discharged to Home. Impression: Influenza due to other hj identified influenza virus. Condition is Stable. Forms are Medication Reconciliation Form, Thank You Letter, Antibiotic Education, Prescription Opioid Use. Follow up: Private Physician; When: Tomorrow; Reason: Continuance of care. bro
[2018-09-28] MEDS ORDERED: OSELTAMIVIR 75 MG CAP ONE (17:47)
[2018-09-28 18:16] VITALS: BP 126/78; TEMP 99.1; O2SAT 95
== END 2018-09-28 18:07 | disposition home or self-care (01) ==
LOC: ER 16:11
DX: J10.1 Influenza due to other identified influenza virus with other respiratory manifestations (principal); E78.00 Pure hypercholesterolemia, unspecified; I10 Essential (primary) hypertension; I25.2 Old myocardial infarction
CPT/HCPCS: 87070; 85025; 80048; 36415; 80076; 87081; 83690; 87804 ×2; 96375; 96374; 99284; J0696; J7030

== ENCOUNTER 2019-02-19 13:53 | Inpatient (IN) | payer OTHER ==
[2019-02-19] MEDS ORDERED: ACETAMINOPHEN 325 MG TABLET ONE (14:57)
[2019-02-19 15:45] LABS: Potassium 3.7 mmol/L (3.5-5.1)
[2019-02-19] MEDS ORDERED: AMPICILLIN/SULBACT 3 GM in NA CHLORIDE 0.9% 100 ML IVPB ONE (16:00)
[2019-02-19 16:04] LABS: Absolute Lymphocytes (CBC) 0.6 K/uL (0.7-4.9); Basophils % 0.2 % (0-1.3); Hematocrit 43.1 % (39.6-49.0); Lymphocytes % 6.1 % (15.3-44.8); RBC Red Blood Cell Count 4.91 M/uL (4.33-5.43)
--- NOTE | 2019-02-19 16:25 | RAD REPORT ---
EXAM DESCRIPTION: CT - Maxillofacial W/Cont - 02/19/2019 4:00 pm CLINICAL HISTORY: Pain;Swelling COMPARISON: None. TECHNIQUE: Axial noncontrast 2 millimeter thick images of the facial bones obtained with sagittal an d coronal reformatted images generated and reviewed. The CT scan was performed using dose optimization techniques as appropriate to a performed exam incl uding one or more of the following: Automated exposure control, adjustment of the mA and/or kV accord ing to patient size (this includes techniques or standardized protocols for targeted exams where dose is matched to indication/reason for exam) and use of iterative reconstruction technique. FINDINGS: Limited intracranial assessment is grossly normal. Mastoid air cells are clear. Right maxi llary sinus mild mucosal thickening with no acute sinus finding. Slight right deviation of the nasal septum. No globe or orbital content abnormality. There has been extraction of the #4 and #5 teeth from the upper right maxilla. Dental decay involves #12 in the left maxilla. No abnormal or drainable fluid collection identifiable. There is some edema and stranding at the site of extraction, not unexpected. Cause or packing material is in place. No jan ne destructive process seen. Condyles of the mandible are normally positioned. IMPRESSION: Recent extraction of the #4 and #5 teeth from the right side maxilla noted. Packing or g auze material in place. No suspicious mass, hematoma or other emergent finding.
[2019-02-19 17:21] LABS: Urine Blood NEGATIVE (NEG); Urine Glucose NEGATIVE (NEG); Urine Protein TRACE (NEG); Urine Specific Gravity 1.005 (1.005-1.030); Urine pH 5.5 (5.0-7.0)
[2019-02-19 17:32] LABS: Urine Bacteria NONE SEEN /HPF (NONE SEEN); Urine Culture Reflex Order NOT NEEDED; Urine RBC NONE SEEN /HPF (NONE SEEN)
--- NOTE | 2019-02-19 17:47 | RAD REPORT ---
EXAM DESCRIPTION: RAD - Chest Pa And Lat (2 Views) - 02/19/2019 5:33 pm CLINICAL HISTORY: FEVER COMPARISON: February 15 TECHNIQUE: PA and lateral views of the chest were obtained. FINDINGS: The lungs are underinflated. Patient has a prominent interstitial pattern similar to kaur rison. This is suspected to be baseline. Lateral view has substantial motion degradation. No focal ma ss or consolidation. Significant failure or volume overload not suspected. Heart size is normal and central vasculature is within normal limits. No pleural effusion or pneumothorax seen. No acute jan ny finding noted. No aortic abnormality. IMPRESSION: No focal mass or consolidation. Prominent interstitial pattern suspected to be baseline. This is similar to comparison.
--- NOTE | 2019-02-19 18:15 | ER ---
Nurse's Notes [facility] Name: Cesar Ching Age: 48 yrs Sex: Male : 1970 Arrival Date: 02/19/2019 Time: 13:56 Bed 27 Private MD: Diagnosis: Cellulitis and abscess of mouth Presentation: 02/19 14:01 Presenting complaint: Had 2 teeth extracted this morning, c/o dizziness, chills, and hb malaise when he got home from dentist appt. Transition of care: patient was not received from another setting of care. Onset of symptoms was February 19, 2019. Risk Assessment: Do you want to hurt yourself or someone else? Patient reports no desire to harm self or others. Initial Sepsis Screen: Does the patient meet any 2 criteria? No. Patient's initial sepsis screen is negative. Does the patient have a suspected source of infection? No. Patient's initial sepsis screen is negative. Care prior to arrival: None. 14:01 Method Of Arrival: Ambulatory hb 14:01 Acuity: JING 3 hb Historical: - Allergies: 14:03 No Known Allergies; hb - Immunization history:: Adult Immunizations up to date. - Social history:: Smoking status: Patient/guardian denies using tobacco. - Ebola Screening: : No symptoms or risks identified at this time. Screenin:15 Abuse screen: Denies threats or abuse. Nutritional screening: No deficits noted. tr5 Tuberculosis screening: No symptoms or risk factors identified. Fall Risk None identified. Assessment: 14:15 General: Appears uncomfortable, Behavior is calm, cooperative, appropriate for age. tr5 Pain: Complains of pain in mouth. Neuro: Level of Consciousness is awake, alert, obeys commands, Oriented to person, place, time, Credit Collections Manager are equal bilaterally Moves all extremities. Gait is steady. Neuro: Reports Shakiness/Chills. Cardiovascular: Heart tones present Capillary refill < 3 seconds Pulses are all present. Edema. Respiratory: Airway is patent Respiratory effort is even, unlabored, Respiratory pattern is regular, symmetrical. GI: No signs and/or symptoms were reported involving the gastrointestinal system. : No signs and/or symptoms were reported regarding the genitourinary system. EENT: No signs and/or symptoms were reported regarding the EENT system. Poor dentition noted. Derm: No signs and/or symptoms reported regarding the dermatologic system. Musculoskeletal: No signs and/or symptoms reported regarding the musculoskeletal system. 15:50 Reassessment: Patient appears in no apparent distress at this time. Patient and/or tr5 family updated on plan of care and expected duration. Pain level reassessed. Patient is alert, oriented x 3, equal unlabored respirations, skin warm/dry/pink. 17:00 Reassessment: Patient appears in no apparent distress at this time. Patient and/or tr5 family updated on plan of care and expected duration. Pain level reassessed. Patient is alert, oriented x 3, equal unlabored respirations, skin warm/dry/pink. Vital Signs: 14:02 BP 168 / 97; Pulse 107; Resp 16; Temp 97.8; Pulse Ox 100% on R/A; Weight 136.08 kg; hb Height 5 ft. 6 in. (167.64 cm); Pain 5/10; 14:07 Temp 102(O); tr5 15:38 BP 125 / 72; Pulse 92; Resp 16; Temp 101(O); Pulse Ox 97% on R/A; tr5 17:00 BP 114 / 72; Pulse 84; Resp 14; Temp 99(O); Pulse Ox 99% on R/A; tr5 18:00 BP 118 / 73; Pulse 87; Resp 16; Pulse Ox 97% on R/A; tr5 19:38 BP 123 / 80; Pulse 93; Resp 16; Temp 98; Pulse Ox 97% on R/A; tr5 14:02 Body Mass Index 48.42 (136.08 kg, 167.64 cm) ED Course: 13:56 Patient arrived in ED. mr 14:02 Triage completed. hb 14:03 Arm band placed on. hb 14:05 Zurdo Mayers, RN is Primary Nurse. tr5 14:15 Patient has correct armband on for positive identification. tr5 14:15 Inserted saline lock: 22 gauge in right antecubital area, using aseptic technique. tr5 14:20 Initial lab(s) drawn, by me, sent to lab. tr5 14:20 First set of blood cultures drawn. tr5 14:49 Feliberto Lawson MD is Attending Physician. gs 15:35 Radiology exam delayed due to lab results not completed at this time. (BUN/Creatinine). jg6 15:37 Second set of blood cultures drawn. tr5 16:[address] tr5 16:01 CT Maxillofacial W/cont In Process Unspecified. EDMS 17:05 Urine Microscopic Only Sent. lt1 17:32 XRAY Chest Pa And Lat (2 Views) In Process Unspecified. EDMS 18:04 initiated a transfer with Brie from the [facility] transfer center. eb 18:08 patient declined at [facility] per Brie/ they are at capacity. eb 18:13 Ty Gallardo MD is Hospitalizing Provider. gs 18:25 Gonzalo Monte MD is Hospitalizing Provider. gs 19:40 No provider procedures requiring assistance completed. Patient admitted, IV remains in tr5 place. Administered Medications: 15:01 Drug: Tylenol 650 mg Route: PO; tr5 15:30 Follow up: Response: No adverse reaction; Temperature is decreased tr5 16:00 Drug: Unasyn 3 grams Route: IVPB; Infused Over: 30 mins; Site: right antecubital; tr5 19:41 Follow up: IV Status: Completed infusion tr5 18:57 Drug: NS 0.9% 1000 ml Route: IV; Rate: 125 ml/hr; Site: right antecubital; tr5 19:41 Follow up: Response: No adverse reaction; IV Status: Completed infusion tr5 Outcome: 18:13 Decision to Hospitalize by Provider. gs 19:40 Admitted to Med/surg tr5 19:40 Condition: stable 19:40 Instructed on the need for admit. 20:26 Patient left the ED. tr5 Signatures: Dispatcher [employer] [facility] Kourtney Orozco Heather, RN RN hb Feliberto Lawson MD MD gs Botello, Elizabeth eb Garcia, Jessica jg6 Alida Maguire lt1 Zurdo Mayers, ALLISON RN tr5 Corrections: (The following items were deleted from the chart) 14:04 14:01 Acuity: JING 3 hb hb 15:16 14:01 Acuity: JING 4 hb hb 15:38 15:37 First set of blood cultures drawn tr5 tr5
--- NOTE | 2019-02-19 18:15 | EDPHYS ---
Physician Documentation [facility] Name: Cesar Ching Age: 48 yrs Sex: Male : 1970 Arrival Date: 02/19/2019 Time: 13:56 Bed 27 Private MD: ED Physician Feliberto Lawson HPI: 02/19 18:28 This 48 yrs old Male presents to ER via Ambulatory with complaints of Doesn't gs Feel Right, Chills. 18:28 Onset: The symptoms/episode began/occurred just prior to arrival, today. Associated gs signs and symptoms: Pertinent positives: arthralgias, Pertinent negatives: altered mental status. Severity of symptoms: At their worst the symptoms were severe in the emergency department the symptoms are unchanged. The patient has not experienced similar symptoms in the past. Historical: - Allergies: 14:03 No Known Allergies; hb - Immunization history:: Adult Immunizations up to date. - Social history:: Smoking status: Patient/guardian denies using tobacco. - Ebola Screening: : No symptoms or risks identified at this time. ROS: 18:28 ENT: Positive for dental pain, dental extraction today. gs 18:28 All other systems are negative. Exam: 18:28 Eyes: Pupils equal round and reactive to light, extra-ocular motions intact. Lids and gs lashes normal. Conjunctiva and sclera are non-icteric and not injected. Cornea within normal limits. Periorbital areas with no swelling, redness, or edema. Neck: Trachea midline, no thyromegaly or masses palpated, and no cervical lymphadenopathy. Supple, full range of motion without nuchal rigidity, or vertebral point tenderness. No Meningismus. Chest/axilla: Normal chest wall appearance and motion. Nontender with no deformity. No lesions are appreciated. 18:28 Respiratory: Lungs have equal breath sounds bilaterally, clear to auscultation and percussion. No rales, rhonchi or wheezes noted. No increased work of breathing, no retractions or nasal flaring. Abdomen/GI: Soft, non-tender, with normal bowel sounds. No distension or tympany. No guarding or rebound. No evidence of tenderness throughout. Back: No spinal tenderness. No costovertebral tenderness. Full range of motion. Skin: Warm, dry with normal turgor. Normal color with no rashes, no lesions, and no evidence of cellulitis. MS/ Extremity: Pulses equal, no cyanosis. Neurovascular intact. Full, normal range of motion. Neuro: Awake and alert, GCS 15, oriented to person, place, time, and situation. Cranial nerves II-XII grossly intact. Motor strength 5/5 in all extremities. Sensory grossly intact. Cerebellar exam normal. Normal gait. 18:28 Constitutional: The patient appears alert, awake, uncomfortable. 18:28 Head/face: Noted is swelling, that is moderate. 18:28 ENT: Dental exam: mild bleeding extraction site. 18:28 Cardiovascular: Rate: tachycardic, Rhythm: regular, Pulses: no pulse deficits are appreciated. Vital Signs: 14:02 BP 168 / 97; Pulse 107; Resp 16; Temp 97.8; Pulse Ox 100% on R/A; Weight 136.08 kg; hb Height 5 ft. 6 in. (167.64 cm); Pain 5/10; 14:07 Temp 102(O); tr5 15:38 BP 125 / 72; Pulse 92; Resp 16; Temp 101(O); Pulse Ox 97% on R/A; tr5 17:00 BP 114 / 72; Pulse 84; Resp 14; Temp 99(O); Pulse Ox 99% on R/A; tr5 18:00 BP 118 / 73; Pulse 87; Resp 16; Pulse Ox 97% on R/A; tr5 19:38 BP 123 / 80; Pulse 93; Resp 16; Temp 98; Pulse Ox 97% on R/A; tr5 14:02 Body Mass Index 48.42 (136.08 kg, 167.64 cm) hb MDM: 15:01 Patient medically screened. gs 18:28 Differential diagnosis: bacterial infection, abscess cellulitis. Data reviewed: vital gs signs, nurses notes. Response to treatment: the patient's symptoms have markedly improved after treatment, and as a result, I will admit patient. 02/19 15:06 Order name: CBC with Diff 02/19 15:06 Order name: Basic Metabolic Panel; Complete Time: 16:49 02/19 15:06 Order name: Blood Culture* 02/19 16:50 Order name: Urine Microscopic Only; Complete Time: 17:54 02/19 17:07 Order name: Urine Dipstick--Ancillary (enter results); Complete Time: 17:54 eb 02/19 20:15 Order name: CBC Smear Scan EDOR 02/19 15:06 Order name: CT Maxillofacial W/cont; Complete Time: 16:49 02/19 16:50 Order name: Urine Dipstick-Ancillary (obtain specimen); Complete Time: 17:05 02/19 16:50 Order name: XRAY Chest Pa And Lat (2 Views); Complete Time: 17:54 02/19 18:46 Order name: Consistent Carb (ADA) [address] EDOR Administered Medications: 15:01 Drug: Tylenol 650 mg Route: PO; tr5 15:30 Follow up: Response: No adverse reaction; Temperature is decreased tr5 16:00 Drug: Unasyn 3 grams Route: IVPB; Infused Over: 30 mins; Site: right antecubital; tr5 19:41 Follow up: IV Status: Completed infusion tr5 18:57 Drug: NS 0.9% 1000 ml Route: IV; Rate: 125 ml/hr; Site: right antecubital; tr5 19:41 Follow up: Response: No adverse reaction; IV Status: Completed infusion tr5 Disposition: 02/19/19 18:13 Hospitalization ordered by Gonzalo Monte for Inpatient Admission. Preliminary diagnosis is Cellulitis and abscess of mouth. - Bed requested for Telemetry/MedSurg (Inpatient). - Status is Inpatient Admission. tr5 - Condition is Stable. - Problem is new. - Symptoms have improved. UTI on Admission? No Signatures: Dispatcher [facility] Natalie Alvarenga RN RN Cindy Rainey RN RN hb Starr, Gregory, MD MD Carin Vaz Zurdo Mayers RN RN tr5 Corrections: (The following items were deleted from the chart) 18:25 18:13 Hospitalization Ordered by Ty Gallardo MD for Inpatient Admission. Preliminary diagnosis is Cellulitis and abscess of mouth. Bed requested for Telemetry/MedSurg (Inpatient). Status is Inpatient Admission. Condition is Stable. Problem is new. Symptoms have improved. UTI on Admission? No. 18:33 18:25 02/19/2019 18:13 Hospitalization Ordered by Gonzalo Monte MD for Inpatient Admission. Preliminary diagnosis is Cellulitis and abscess of mouth. Bed requested for Telemetry/MedSurg (Inpatient). Status is Inpatient Admission. Condition is Stable. Problem is new. Symptoms have improved. UTI on Admission? No. gs 18:52 18:33 02/19/2019 18:13 Hospitalization Ordered by Gonzalo Monte MD for Inpatient mw Admission. Preliminary diagnosis is Cellulitis and abscess of mouth. Bed requested for Telemetry/MedSurg (Inpatient). Status is Inpatient Admission. Condition is Stable. Problem is new. Symptoms have improved. UTI on Admission? No. eb 20:26 18:52 02/19/2019 18:13 Hospitalization Ordered by Gonzalo Monte MD for Inpatient tr5 Admission. Preliminary diagnosis is Cellulitis and abscess of mouth. Bed requested for Telemetry/MedSurg (Inpatient). Status is Inpatient Admission. Condition is Stable. Problem is new. Symptoms have improved. UTI on Admission? No. mw
[2019-02-19] MEDS ORDERED: HYDROCODONE/APAP 5/325 MG TAB PO PRN (18:36)
[2019-02-19] MEDS ORDERED: NA CHLORIDE 0.9% 1,000 ML ONE (18:52)
[2019-02-19 20:14] LABS: Blood Morphology Comment NOT SEEN (NOT SEEN); Platelet Estimate ADEQ; Urine White Blood Cell Casts OK
[2019-02-19 20:35] VITALS: BMI 48.9
[2019-02-19] MEDS: NA CHLORIDE 0.9% 1,000 ML IV SCH (20:51)
[2019-02-20] MEDS: AMPICILLIN/SULBACT 3 GM in NA CHLORIDE 0.9% 100 ML IVPB SCH ×2 (00:12→05:03)
[2019-02-20] MEDS: NA CHLORIDE 0.9% 1,000 ML IV SCH ×3 (05:00→15:00)
[2019-02-20] MEDS: ACETAMINOPHEN 500 MG TAB PO PRN ×2 (05:33→14:47)
[2019-02-20] MEDS: APIXABAN 5 MG TABLET PO SCH ×2 (08:13→20:22)
[2019-02-20 08:22] LABS: Absolute Lymphocytes (CBC) 0.4 K/uL (0.7-4.9); Basophils % 0.3 % (0-1.3); Hematocrit 38.4 % (39.6-49.0); Lymphocytes % 6.6 % (15.3-44.8); MPV 9.7 fL (7.6-11.3); RBC Red Blood Cell Count 4.34 M/uL (4.33-5.43)
[2019-02-20 08:48] LABS: Albumin 3.2 g/dL (3.4-5.0); Bilirubin Total 1.9 mg/dL (0.2-1.0); Magnesium 1.8 mg/dL (1.8-2.4); Potassium 3.6 mmol/L (3.5-5.1); Protein, Total 7.1 g/dL (6.4-8.2); Thyroid Stimulating Hormone 0.579 uIU/mL (0.360-3.740)
[2019-02-20] MEDS ORDERED: INFLUENZA VACCINE (for 3y+) 0.5 ML DOSE IMVAC ONE (09:00)
--- NOTE | 2019-02-20 11:13 | P.HP ---
Certification for Inpatient Patient admitted to: Inpatient With expected LOS: >2 Midnights Practitioner: I am a practitioner with admitting privileges, knowledge of patient current condition, hospital course, and medical plan of care. Services: Services provided to patient in accordance with Admission requirements found in Title 42 Section 412.3 of the Code of Federal Regulations Patient History Date of Service: 02/20/19 Reason for admission: FEVER AND CHILLS History of Present Illness: MR. SERRA IS A CAD PATIENT WITH CABG IN 2014, HE WENT TO HAVE DENTAL EXTRACTION AT DENTAL PLACE NEXT TO [facility]. TWO UPPER TEETH WERE REMOVED AND TWO HOURS AFTER HE STARTED TO HAVE FEVER AND CHILLS. LAST NIGHT HE HAD EPISODE OF A FIB THAT RESOLVED. Allergies No Known Drug Allergies Allergy (Verified 02/19/19 20:20) Unknown Home Medications: Amitriptyline [Elavil] 10 mg PO BEDTIME 02/20/19 Atorvastatin Calcium [Lipitor] 40 mg PO DAILY 02/20/19 Lisinopril 40 mg PO DAILY 02/20/19 Metoprolol Tartrate [Lopressor] 50 mg PO BID 02/20/19 - Past Medical/Surgical History Has patient received pneumonia vaccine in the past: No Diabetic: No -: HTN -: Hyperlipidemia -: History of CVA -: open heart Sx - Social History Smoking Status: Never smoker Alcohol use: No CD- Drugs: No Caffeine use: Yes Place of Residence: Home Review of Systems 10-point ROS is otherwise unremarkable Integumentary: As per HPI Physical Examination - Vital Signs Temperature: 98.5 F Blood Pressure: 126/68 Pulse: 87 Respirations: 18 Pulse Ox (%): 95 - Physical Exam General: Alert, Mild distress, Obese HEENT: Atraumatic, PERRLA, Mucous membr. moist/pink, EOMI, Sclerae nonicteric Neck: Supple, 2+ carotid pulse no bruit, No LAD, Without JVD or thyroid abnormality Respiratory: Clear to auscultation bilaterally, Normal air movement Cardiovascular: Regular rate/rhythm, Normal S1 S2 Gastrointestinal: Normal bowel sounds, No tenderness Musculoskeletal: No tenderness Integumentary: No rashes Neurological: Normal gait, Normal speech, Normal strength at 5/5 x4 extr, Normal tone, Normal affect Lymphatics: No axilla or inguinal lymphadenopathy - Studies Laboratory Data (last 24 hrs) 02/19/19 14:20: Sodium 139, Potassium 3.7, BUN 16, Creatinine 0.98, Glucose 112 H 02/19/19 14:20: WBC 10.2, Hgb 14.6, Hct 43.1, Plt Count 161 Assessment and Plan - Problems (Diagnosis) (1) Facial cellulitis Current Visit: Yes Status: Acute Plan: IV UNASYN. WE NEED TO HAVE HIM GO TO DENTIST ON FRIDAY. I WILL DC HIM IN AM MOST LIKELY. CLINDAMYCIN ORALLY MAY HELP OP MEDS. (2) Coronary artery disease with history of myocardial infarction without history of CABG Current Visit: Yes Status: Chronic Plan: STABLE ON MEDS. YUE BLANCO. (3) History of CVA (cerebrovascular accident) Current Visit: Yes Status: Resolved Plan: STABLE ON MEDS. VASCULOPATHY IS EARLY FOR THIS GENTLEMAN. (4) A-fib Current Visit: Yes Status: Acute Plan: IS ON B LAYO ALREADY. TALKED TO NURSE TO CONTINUE. ADD ELIQUIS BID. Qualifiers: Atrial fibrillation type: paroxysmal Qualified Code(s): I48.0 - Paroxysmal atrial fibrillation - Advance Directives Does patient have a Living Will: No Does patient have a Durable POA for Healthcare: No
[2019-02-20] MEDS: LISINOPRIL 20 MG TAB PO SCH (11:35)
[2019-02-20] MEDS: METOPROLOL TAR 50 MG TAB PO SCH ×2 (11:35→20:22)
[2019-02-20] MEDS ORDERED: AMPICILLIN/SULBACT 3 GM in NA CHLORIDE 0.9% 100 ML IVPB SCH (12:00)
[2019-02-20] MEDS ORDERED: ACETAMINOPHEN 500 MG TAB PO PRN (17:16)
[2019-02-20] MEDS: Levofloxacin500mg IV 500 MG/100 ML BAG IV SCH (18:00)
[2019-02-20] MEDS: PIPER/TAZO/NS 3.375gm 3.375 GM/100 ML BAG IVPB SCH (18:01)
[2019-02-20] MEDS: AMITRIPTYLINE 10 MG TAB PO SCH (20:22)
[2019-02-20] MEDS: ATORVASTATIN 40 MG TAB PO SCH (20:22)
[2019-02-21] MEDS: PIPER/TAZO/NS 3.375gm 3.375 GM/100 ML BAG IVPB SCH ×2 (00:02→05:10)
[2019-02-21] MEDS: NA CHLORIDE 0.9% 1,000 ML IV SCH ×4 (00:55→17:09)
--- NOTE | 2019-02-21 05:24 | CON ---
Date of Consultation: 02/20/2019 Reason For Consultation: Atrial fibrillation. History Of Present Illness: Mr. Ching is a 48-year-old, Latin-[place] male. He is known to us fro m previous office visits and admissions. He is also Dr. Sampson' patient. He had undergone a CABG in 2017 with a ALDRIDGE to the LAD. He came in with no cardiac symptoms. He had a normal chest x-ray. Hi s EKG initially with normal rhythm. The main reason for admission was cellulitis of his face. He landeros s recently had some teeth removed. CT scan of the face did not show any sinusitis. Nevertheless, wh ile he was on antibiotics, he had an episode of atrial fibrillation. It was asymptomatic and without any hemodynamic compromise. He is already on metoprolol at home. Dr. Monte appropriately added Ameena rashaun. He is back in normal rhythm. He denied any chest pain, nausea, vomiting, diaphoresis, PND, or thopnea, pedal edema, palpitations, or syncope. Allergies: NONE. Review of Systems: Negative. Social History: Negative. Family History: Negative. Medications: At home include Elavil, Lipitor, lisinopril, metoprolol. Physical Examination: General: When I saw him, he was in no acute distress. He was in normal sinus rhythm. He weighed 30 3 pounds. Vital signs: Stable, otherwise afebrile. HEENT: Negative. Neck: Supple without any bruit, lymphadenopathy, JVD, or thyromegaly. Chest: Clear to auscultation and percussion. Cardiac: Exam revealed a regular rhythm and rate. No murmurs, gallops, or rubs. Abdomen: Benign. Extremities: Revealed no clubbing, cyanosis, or edema. Skin: Dry and intact. Neurological: He was nonfocal. Diagnostic Data: Fairly unremarkable. Impression And Plan: Paroxysmal atrial fibrillation in a patient with history of hypertension, dysli pidemia, dyslipidemia, and CABG. I agree with continuing metoprolol. He definitely should be on an anticoagulant and I think Eliquis is very appropriate. His other problems including coronary artery disease, dyslipidemia, and hypertension are very stable at this point. Mr. Ching has morbid obesity and he was counseled on weight loss. Low-salt diet and low-fat diet. From my standpoint, I think a n echocardiogram is reasonable considering he has new onset atrial fibrillation. This certainly can be done as an inpatient or outpatient. I will discuss the case further with Dr. Monte. GENA/JOSE ARMANDO Voice ID: [id number] Report ID: [id number]
[2019-02-21] MEDS: METOPROLOL TAR 50 MG TAB PO SCH ×2 (10:14→20:50)
[2019-02-21] MEDS: LISINOPRIL 20 MG TAB PO SCH (10:15)
[2019-02-21] MEDS: APIXABAN 5 MG TABLET PO SCH ×2 (10:15→20:50)
[2019-02-21] MEDS ORDERED: ACETAMINOPHEN 500 MG TAB PO PRN (10:33)
--- NOTE | 2019-02-21 12:00 | PN ---
Subjective: Mr. Ching is doing well. Had some episodes of fever yesterday [address] Wilson who was on-call for me oil changer from Unasyn to Zosyn and Levaquin at this point. He still has a packing in the mouth area after tooth extraction. Denies any other complaints. He has no chest pain , nausea, vomiting, or shortness of breath. Physical Examination: Vital Signs: Blood pressure 126/68, pulse is 87. General: He is very comfortable lying in the bed, has no pain at this point. Right-sided facial swe lling continues. Chest: Clear. Heart: Regular. Abdomen: No guarding, no rebound, no rigidity. He is morbidly obese. Laboratory Examination: His white count was 6800 yesterday. Today's lab work is ordered just now. Assessment And Plan: Right dental area abscess. I have called his dentist, Dr. Gonzalo Caldwell and l christophert a message to call back because we do not have ENT doctor marketing content coordinator to evaluate this area of infecti on. He will need to take care of this tomorrow if he is not available today. Until then, I will put him on clindamycin antibiotic in place of Zosyn and Unasyn and Levaquin IV to cover gram negative. I do not see the need of vancomycin at this point unless he has more symptoms or more fever on these antibiotics. Having foreign body in the infected area in the form of gauze could give a fever, which is what I think most likely is happening. ZEYNEP/JOSE ARMANDO Voice ID: [id number] Report ID: [id number]
[2019-02-21] MEDS: CLINDAMYCIN INJ 600 MG in NA CHLORIDE 0.9% 50 ML IV SCH ×2 (12:32→17:08)
[2019-02-21 13:33] LABS: Absolute Lymphocytes (CBC) 0.7 K/uL (0.7-4.9); Basophils % 0.7 % (0-1.3); Hematocrit 36.3 % (39.6-49.0); Lymphocytes % 20.6 % (15.3-44.8); MPV 9.7 fL (7.6-11.3); RBC Red Blood Cell Count 4.16 M/uL (4.33-5.43)
[2019-02-21 13:45] LABS: BUN Blood Urea Nitrogen 14 mg/dL (7-18); Bicarbonate 24 mmol/L (21-32); Glucose Level 121 mg/dL (74-106); Potassium 3.8 mmol/L (3.5-5.1); Sodium Level 140 mmol/L (136-145)
[2019-02-21] MEDS: Levofloxacin500mg IV 500 MG/100 ML BAG IV SCH (18:11)
[2019-02-21] MEDS: AMITRIPTYLINE 10 MG TAB PO SCH (20:50)
[2019-02-21] MEDS: ATORVASTATIN 40 MG TAB PO SCH (20:50)
[2019-02-22] MEDS: CLINDAMYCIN INJ 600 MG in NA CHLORIDE 0.9% 50 ML IV SCH ×3 (00:20→16:24)
[2019-02-22] MEDS: NA CHLORIDE 0.9% 1,000 ML IV SCH (03:40)
--- NOTE | 2019-02-22 07:55 | PN ---
Subjective: Mr. Ching was seen on 02/20/2019 for atrial fibrillation. He is now in sinus rhythm on Betapace and Eliquis. I think he can definitely go home today. The main reason for his admission w as facial cellulitis after dental extraction. He has had CABG within the last 2 years ago. Has not had any further cardiac evaluation since then. His atrial fibrillation is new that has resolved. I feel comfortable with him going home and I will set him up for an outpatient stress test and an echoc ardiogram and he will see either myself or Dr. Sampson in the near future. GENA/JOSE ARMANDO Voice ID: [id number] Report ID: [id number]
[2019-02-22] MEDS: METOPROLOL TAR 50 MG TAB PO SCH (08:00)
[2019-02-22] MEDS: APIXABAN 5 MG TABLET PO SCH ×2 (08:00→21:52)
[2019-02-22] MEDS: LISINOPRIL 20 MG TAB PO SCH (08:00)
--- NOTE | 2019-02-22 10:10 | PN ---
Subjective: Mr. Ching is having atrial fibrillation despite being treated with metoprolol. I recom mend we stop metoprolol and treat him with Betapace. He still has an echocardiogram pending, but I s uspect he could be discharged if the ejection fraction is normal, even though he has not had 48 hours on Betapace. If he tolerates the first dose tonight and tomorrow, he could be discharged. MADAN/JOSE ARMANDO Voice ID: [id number] Report ID: [id number]
--- NOTE | 2019-02-22 15:53 | ECHO ---
HEIGHT: 5 ft 6 in WEIGHT: 303 lb 0 oz DATE OF STUDY: 02/22/[address]: Rusty Ruby MD 2-DIMENSIONAL: YES M.MODE: YES DOPPLER: YES COLOR FLOW: YES TDS: YES PORTABLE: NO DEFINITY: NO BUBBLE STUDY: NO DIAGNOSIS: ATRIAL FIBRILLATION CARDIAC HISTORY: CATHERIZATION: NO SURGERY: NO PROSTHETIC VALVE: NO PACEMAKER: NO MEASUREMENTS (cm) DIASTOLIC (NORMALS) SYSTOLIC (NORMALS) IVSd 1.1 (0.6-1.2) LA Diam 3.8 (1.9-4.0) LVEF 78% LVIDd 5.1 (3.5-5.7) LVIDs 2.7 (2.0-3.5) %FS 47% LVPWd 1.1 (0.6-1.2) Ao Diam 2.8 (2.0-3.7) 2 DIMENSIONAL ASSESSMENT: RIGHT ATRIUM: NORMAL LEFT ATRIUM: NORMAL RIGHT VENTRICLE: NORMAL LEFT VENTRICLE: NORMAL TRICUSPID VALVE: NORMAL MITRAL VALVE: NORMAL PULMONIC VALVE: NORMAL AORTIC VALVE: NORMAL PERICARDIAL EFFUSION: NONE AORTIC ROOT: NORMAL LEFT VENTRICULAR WALL MOTION: NORMAL DOPPLER/COLOR FLOW: NORMAL COMMENTS: NORMAL 2D ECHOCARDIOGRAM WITH DOPPLER. TECHNOLOGIST: hCance COVARRUBIAS
[2019-02-22] MEDS: Levofloxacin500mg IV 500 MG/100 ML BAG IV SCH (17:03)
[2019-02-22] MEDS: SOTALOL HCL 80 MG TAB PO SCH (17:03)
[2019-02-22] MEDS: ATORVASTATIN 40 MG TAB PO SCH (21:52)
[2019-02-23] MEDS: CLINDAMYCIN INJ 600 MG in NA CHLORIDE 0.9% 50 ML IV SCH ×2 (02:29→09:02)
[2019-02-23] MEDS: SOTALOL HCL 80 MG TAB PO SCH (06:12)
[2019-02-23] MEDS: LISINOPRIL 20 MG TAB PO SCH (09:00)
[2019-02-23] MEDS: APIXABAN 5 MG TABLET PO SCH (09:02)
[2019-02-23 09:28] VITALS: O2SAT 95
[2019-02-23 13:54] VITALS: BP 132/84; TEMP 97
--- NOTE | 2019-02-23 14:08 | PN ---
Subjective: Mr. Ching is doing well. Denies any chest pain, nausea, vomiting. He has no facial pain any longer. Swelling has slightly improved, but according to nurses, at nighttime he has had a few episodes of atrial fibrillation. Physical Examination: Vital Signs: Blood pressure 140/83, pulse is 59. Temperature 98.2, one episode of 99.5 temperature. HEENT: No JVD. No carotid bruits. Minimal swelling of right side of cheek, where he has infection. Chest: Clear. Investigations: Echocardiogram shows normal EF. Assessment And Plan: 1. Recurrent atrial fibrillation. Discharge held by Dr. Sampson for atrial fibrillation. Betapace treatment instead of Toprol, which he can take a couple of more days in the hospital. 2. Fever. Continue with clindamycin. Try to discontinue Levaquin because Levaquin will have interaction with Betapace giving rise to high QT interval and may give rise to ventricular arrhythmias. Previously, he failed Unasyn with fever, on Unasyn. I do not suspect a Pseudomonas infection. I will send him home on Clindamycin as it will have good anaerobic coverage for dental infection.. ZEYNEP/JOSE ARMANDO Voice ID: [id number] Report ID: [id number] CARMEN
--- NOTE | 2019-02-23 18:44 | P.DS ---
Admission Date: 02/21/19 Discharge Date: 02/23/19 Disposition: ROUTINE DISCHARGE Discharge Condition: FAIR Reason for Admission: FEVER AND CHILLS - Problems (1) Facial cellulitis Status: Acute (2) Coronary artery disease with history of myocardial infarction without history of CABG Status: Chronic (3) A-fib Status: Acute Qualifiers: Atrial fibrillation type: paroxysmal Qualified Code(s): I48.0 - Paroxysmal atrial fibrillation Brief History of Present Illness: MR. SERRA IS A CAD PATIENT WITH CABG IN 2014, HE WENT TO HAVE DENTAL EXTRACTION AT [facility]AL PL[facility]EXT TO [facility]. TWO UPPER TEETH WERE REMOVED AND TWO HOURS AFTER HE STARTED TO HAVE FEVER AND CHILLS. LAST NIGHT HE HAD EPISODE OF A FIB THAT RESOLVED. Hospital Course: MR. SERRA CAME FOR FACIAL SWELLING AND FEVER AFTER DENTAL PROCEDURE. INITIALLY UNASYN DID NOT WORK HE HAD FEVER ON IT. I CHANGED TO CLINDAMYCIN AND IT WORKED GREAT. I CALLED HIS DENTIST BUT HE DID NOT REPLY. HE OLEG GO SEE DENTIST THIS WEEK TO GET PACKING REMOVED. MEANWHILE HE HAD FEW EPISODES OF RAPID A FIB. ELIUQIS AND BETAPACE WERE STARTED. HE IS STABLE TO GO HOME TODAY. Vital Signs/Physical Exam: Temp Pulse Resp BP Pulse Ox 97 F 53 18 132/84 97 02/23/19 12:00 02/23/19 12:00 02/23/19 12:00 02/23/19 12:00 02/23/19 12:00 Laboratory Data at Discharge: WBC 3.4 K/uL (4.3-10.9) L D 02/21/19 13:20 Hgb 12.4 g/dL (13.6-17.9) L 02/21/19 13:20 Hct 36.3 % (39.6-49.0) L 02/21/19 13:20 Plt Count 135 K/uL (152-406) L 02/21/19 13:20 Sodium 140 mmol/L (136-145) 02/21/19 13:20 Potassium 3.8 mmol/L (3.5-5.1) 02/21/19 13:20 BUN 14 mg/dL (7-18) 02/21/19 13:20 Creatinine 0.78 mg/dL (0.55-1.3) 02/21/19 13:20 Glucose 121 mg/dL (74-106) H 02/21/19 13:20 Magnesium 1.8 mg/dL (1.8-2.4) 02/20/19 08:08 Total Bilirubin 1.9 mg/dL (0.2-1.0) H 02/20/19 08:08 AST 14 U/L (15-37) L 02/20/19 08:08 ALT 23 U/L (12-78) 02/20/19 08:08 Alkaline Phosphatase 86 U/L (45-117) 02/20/19 08:08 Home Medications: Amitriptyline [Elavil*] 10 mg PO BEDTIME 02/20/19 Atorvastatin Calcium [Lipitor] 40 mg PO DAILY 02/20/19 Lisinopril 40 mg PO DAILY 02/20/19 Metoprolol Tartrate [Lopressor*] 50 mg PO BID 02/20/19 Amitriptyline [Elavil*] 10 mg PO BEDTIME tab 02/22/19 Apixaban [Eliquis] 5 mg PO BID #60 tablet 02/22/19 Atorvastatin Calcium [Lipitor] 40 mg PO BEDTIME tab 02/22/19 Clindamycin HCl 300 mg PO TID #21 capsule 02/22/19 Lisinopril [Prinivil*] 40 mg PO DAILY tab 02/22/19 Metoprolol Tartrate [Lopressor*] 50 mg PO BID tab 02/22/19 New Medications: Apixaban [Eliquis] 5 mg PO BID #60 tablet Clindamycin HCl 300 mg PO TID #21 capsule
--- NOTE | 2019-02-24 01:36 | PN ---
Date of Progress Note: 02/23/2019 Mr. Ching was admitted with facial cellulitis after dental extraction, has been in atrial fibrillati on, in an out, since he has been in the hospital. We initially had him on metoprolol. Dr. Sampson sw itched him to Betapace yesterday 80 mg 1 p.o. b.i.d. He remains in sinus rhythm now. He will go aixa e on Betapace and Eliquis, and we will see him in the office in the near future. He does have a hist ory of CABG and I think he needs to have another stress test done in the near future. I will make an arrangement for that as an outpatient. GENA/JOSE ARMANDO Voice ID: [id number] Report ID: [id number]
== END 2019-02-23 13:00 | disposition home or self-care (01) | DRG 603 ==
LOC: ER 13:53 → INTOOBSV 18:35 → ERHOLD 18:35 → 2ND 19:44 → OBSVTOIN 02-21 12:58 → 2ND 02-21 16:49
PROVIDERS: ADMIT Internal Medicine; ATTEND Internal Medicine
DX: L03.211 Cellulitis of face (principal); I25.810 Atherosclerosis of coronary artery bypass graft(s) without angina pectoris; Z68.42 Body mass index [BMI] 45.0-49.9, adult; K04.7 Periapical abscess without sinus; E78.5 Hyperlipidemia, unspecified; I25.2 Old myocardial infarction; I48.0 Paroxysmal atrial fibrillation; I10 Essential (primary) hypertension; E66.01 Morbid (severe) obesity due to excess calories; Z71.3 Dietary counseling and surveillance; T81.9XXA Unspecified complication of procedure, initial encounter; Z98.818 Other dental procedure status
CPT/HCPCS: 36415; 70487; 71046; 80048; 80053; 81003; 81015; 82962; 83605; 83735; 84145; 84443; 85025; 87040; 93306; 96365; 96366; 99285; J0295; J2543; J7030; Q2035; Q9967

== ENCOUNTER 2019-09-03 10:14 | Emergency (ER) | payer OTHER ==
--- OUTSIDE RECORDS SUMMARY | 2019-09-03 10:17 | XMS REPORT ---
:1970 Author Organization [facility] t Address [address] [place] [address] Care Team Providers Name Role Phone MASSUMI Unavailable Unavailable Problems This patient has no known problems. Allergies, Adverse Reactions, Alerts This patient has no known allergies or adverse reactions. Medications This patient has no known medications. Results Test Description Test Time Test Comments Text Results Atomic Results Result Comments POCT-ACT 2017-07-21 09:31:00 Test Item Value Reference Range Comments ACTIVATED CLOTTING TIME (BEAKER) (test 252 sec TESTED AT [facility] [address] code = 441) [place] [address] [id number] 09:31:00 Test Item Value Reference Range Comments ACTIVATED CLOTTING TIME 125 sec TESTED A T [facility] [address] (BEAKER) (test code = 441) [place] [address] HEMOGLOBIN [id number] 12:16:00 Test Item Value Reference Range Comments HEMOGLOBIN A1C (BEAKER) (test code = 368) 5.2 % 4.3-6. 1 LIPID [id number] 07:38:00 Test Item Value Reference Range Comments TRIGLYCERIDES (BEAKER) (test code = 540) 270 mg/dL CHOLESTEROL (BEAKER) (test code = 631) 157 mg/dL HDL CHOLESTEROL (BEAKER) (test code = 976) 31 mg/dL LDL CHOLESTEROL CALCULATED (BEAKER) (test code = 72 mg/dL 633) Triglyceride Reference Range: Low Risk <150 Borderline 150-199 High Risk 200-499 Very High Risk >=500Cholesterol Reference Range: Low Risk <200 Borderline 200-239 High Risk >240HDL Cholesterol Reference Range: Low Risk >=60 High Risk <40LDL Cholesterol Reference Range: Optimal <100 Near Optimal 100-129 Borderline 130-159 High 160-189 Very High >=190BASIC METABOLIC [id number] 07:38:00 Test Item Value Reference Range Comments SODIUM (BEAKER) (test 137 meq/L 136-145 code = 381) POTASSIUM (BEAKER) (test 4.0 meq/L 3.5-5.1 code = 379) CHLORIDE (BEAKER) (test 106 meq/L 98-107 code = 382) CO2 (BEAKER) (test code = 26 meq/L 22-29 355) BLOOD UREA NITROGEN 15 mg/dL 7-21 (BEAKER) (test code = 354) CREATININE (BEAKER) (test 0.90 mg/dL 0.57-1.25 code = 358) GLUCOSE RANDOM (BEAKER) 98 mg/dL 70-105 (test code = 652) CALCIUM (BEAKER) (test 8.8 mg/dL 8.4-10.2 code = 697) EGFR (BEAKER) (test code mL/min/1.73 sq m INSUF FICIENT CLINICAL DATA = 1092) TO CALCULATE EST IMATED GFR. [id number] 07:37:00 Test Item Value Reference Range Comments MAGNESIUM (BEAKER) (test code = 627) 1.8 mg/dL 1.6-2.6 CBC (HEMOGRAM ONLY)2017-07-19 06:30:00 Test Item Value Reference Range Comments WHITE BLOOD CELL COUNT (BEAKER) (test code = 7.5 K/ L 3.5 -10.5 775) RED BLOOD CELL COUNT (BEAKER) (test code = 761) 4.45 M/ L 4.63-6.08 HEMOGLOBIN (BEAKER) (test code = 410) 13.2 GM/DL 13.7-17.5 HEMATOCRIT (BEAKER) (test code = 411) 40.3 % 40.1-51.0 MEAN CORPUSCULAR VOLUME (BEAKER) (test code = 90.6 fL 79 .0-92.2 753) MEAN CORPUSCULAR HEMOGLOBIN (BEAKER) (test code 29.7 pg 25.7-32.2 = 751) MEAN CORPUSCULAR HEMOGLOBIN CONC (BEAKER) (test 32.8 GM/DL 32.3-36.5 code = 752) RED CELL DISTRIBUTION WIDTH (BEAKER) (test code 13.5 % 11.6-14.4 = 412) PLATELET COUNT (BEAKER) (test code = 756) 147 K/CU MM 150-45 0 MEAN PLATELET VOLUME (BEAKER) (test code = 754) 13.0 fL 9.4-12.4 NUCLEATED RED BLOOD CELLS (BEAKER) (test code = 0 /100 WBC 0-0 413)
[2019-09-03] MEDS ORDERED: HYDRALAZINE HCL 20 MG/ML VIAL ONE ×2 (10:49→10:51)
[2019-09-03 10:53] LABS: Absolute Lymphocytes (CBC) 1.9 K/uL (0.7-4.9); Basophils % 0.7 % (0-1.3); Hematocrit 42.9 % (39.6-49.0); Lymphocytes % 25.6 % (15.3-44.8); MPV 10.7 fL (7.6-11.3); RBC Red Blood Cell Count 4.94 M/uL (4.33-5.43)
[2019-09-03 10:54] LABS: Protime INR 0.97
[2019-09-03 11:26] LABS: ALT/SGPT 32 U/L (12-78); AST/SGOT 15 U/L (15-37); Albumin 3.7 g/dL (3.4-5.0); Alkaline Phosphatase 114 U/L (45-117); BUN Blood Urea Nitrogen 17 mg/dL (7-18); Bicarbonate 26 mmol/L (21-32); Bilirubin Direct 0.2 mg/dL (0-0.2); Bilirubin Total 0.9 mg/dL (0.2-1.0); Glucose Level 116 mg/dL (74-106); Magnesium 1.9 mg/dL (1.8-2.4); NT PRO-BNP 126 pg/mL (<125); Potassium 3.9 mmol/L (3.5-5.1); Protein, Total 7.8 g/dL (6.4-8.2); Sodium Level 141 mmol/L (136-145); Troponin (Emerg Dept Use Only) < 0.02 ng/mL (0.0-0.045)
--- NOTE | 2019-09-03 11:38 | RAD REPORT ---
EXAM DESCRIPTION: CT - Head Brain Wo Cont - 09/03/2019 10:51 am CLINICAL HISTORY: Headache COMPARISON: 2014 TECHNIQUE: Computed axial tomography of the head was obtained. IV contrast was not requested. All CT scans are performed using dose optimization technique as appropriate and may include automated exposure control or mA/KV adjustment according to patient size. FINDINGS: An intracranial bleed is not seen . The ventricles are normal in caliber. No extra-axial fluid collection is noted. Tiny parafalcine lipoma Fluid within the sinuses/ mastoids is not seen. IMPRESSION: No acute intracranial abnormality is seen. If patient's symptoms persist MRI of the bra in would be recommended.
--- NOTE | 2019-09-03 12:12 | RAD REPORT ---
EXAM DESCRIPTION: [place] Single View09/03/2019 11:54 am CLINICAL HISTORY: Shortness of breath COMPARISON: February 2019 FINDINGS: The lungs appear clear of acute infiltrate. The heart is mildly enlarged. Postsurgical changes involve the chest. IMPRESSION: No acute abnormalities displayed
--- NOTE | 2019-09-03 13:31 | ER ---
Nurse's Notes [facility] Name: Cesar Ching Age: 49 yrs Sex: Male : 1970 Arrival Date: 09/03/2019 Time: 10:15 Bed 4 Private MD: Gonzalo Monte V Diagnosis: Hypertensive Emergency Presentation: 09/02 10:20 Chief complaint: Patient states: went to bed last night around 2100 with a right sv occipital headache, took 2 APAP and woke up at 0000 with no NOBLE, went back to sleep. Woke up at 0700 and noticed that his lips and tongue were numb. Denies weakness, slurred speech, trouble walking. Coronavirus screen: Proceed with normal triage. Patient denies a cough. Patient denies shortness of breath or difficulty breathing. Patient denies measured and/or subjective temperature greater than 100.4F prior to today's visit. Patient denies travel on a cruise ship or to a country the [facility] currently lists as an affected area. Patient denies contact with known and/or suspected case of COVID-19. Ebola Screen: No symptoms or risks identified at this time. An acute neurological deficit is present. The patient has been moved to a treatment area. Pre-hospital glucose is not applicable to this patient. Initial Sepsis Screen: Does the patient meet any 2 criteria? No. Patient's initial sepsis screen is negative. Does the patient have a suspected source of infection? No. Patient's initial sepsis screen is negative. Risk Assessment: Do you want to hurt yourself or someone else? Patient reports no desire to harm self or others. Onset of symptoms was September 02, 2019. 10:20 Method Of Arrival: Ambulatory sv 10:20 Acuity: JING 2 sv Triage Assessment: 10:20 The onset of the patients symptoms was more than six hours ago. General: Appears in no sv apparent distress. comfortable, obese, well developed, Behavior is calm, cooperative, appropriate for age. Pain: Denies pain. Neuro: Level of Consciousness is awake, alert, obeys commands, Oriented to person, place, time, situation, Escrow Secretary are equal bilaterally Moves all extremities. Gait is steady, Speech is normal, Facial symmetry appears normal, Facial symmetry: tongue is midline, Reports numbness in tongue, upper lip and lower lip. Cardiovascular: Rhythm is sinus bradycardia Chest pain is denied. Respiratory: Airway is patent Respiratory effort is even, unlabored, Respiratory pattern is regular, symmetrical. Derm: Skin is intact, Skin is pink, warm \T\ dry. Musculoskeletal: Range of motion: intact in all extremities. Stroke Activation: Symptom onset > 6 hours Physician: Stroke Attending; Name: ; Notified At: ; Arrived At: Physician: Chief Stroke Resident; Name: ; Notified At: ; Arrived At: Physician: Stroke Resident; Name: ; Notified At: ; Arrived At: Physician: ED Attending; Name: ; Notified At: ; Arrived At: Physician: ED Resident; Name: ; Notified At: ; Arrived At: Historical: - Allergies: 10:35 No Known Allergies; sv - Home Meds: 10:35 atorvastatin 40 mg Oral tab 1 tab once daily [Active]; metoprolol tartrate 50 mg Oral sv tab 1 tab 2 times per day [Active]; aspirin 81 mg Oral TbEC 1 tab once daily [Active]; - PMHx: 10:35 High Cholesterol; Hypertension; Myocardial infarction; sv - PSHx: 10:35 CABG; sv - Immunization history:: Adult Immunizations up to date. - Social history:: Smoking status: . Screenin:20 Abuse screen: Denies threats or abuse. Denies injuries from another. Nutritional sv screening: No deficits noted. Tuberculosis screening: No symptoms or risk factors identified. Fall Risk None identified. Assessment: 10:20 VAN Scoring: Arm Drift: Patients demonstrates NO arm weakness. Patient is VAN Negative. sv T-PA (Activase) Screening: Contraindications: Patient reports onset of signs and symptoms of stroke greater than 6 hours ago: Yes. 11:00 Reassessment: Patient appears in no apparent distress at this time. No changes from sv previously documented assessment. Patient and/or family updated on plan of care and expected duration. Pain level reassessed. Patient is alert, oriented x 3, equal unlabored respirations, skin warm/dry/pink. 11:01 Patient has been NPO before screening. The patient is alert, and able to follow sv commands. The patient does not exhibit slurred or garbled speech. The patient is not exhibiting difficulty speaking. The patient does not exhibit difficulty understanding words. The patient is able to swallow own secretions with no drooling or need for suction. Patient tolerated one teaspoon of water. No drooling, immediate coughing, gurgling, or clearing of the throat was noted. The patient tolerated 90mL of water. No drooling, immediate coughing, gurgling, or clearing of the throat was noted. The patient passed the bedside swallow screening. Oral medications may be given as ordered. Contact Physician for further diet orders. Provider notified of bedside swallow screening results: Amaury WATSON. 12:41 Reassessment: Called pt's daughter Romi and gave her an update about her dad. She sv stated that he was taken off of insurance recently but he is disabled. She is asking for help so he can be able to see his doctors. I called and spoke with Deanna with case management and she stated that she would try and get a hold of Deepali Che to help him. 13:30 Reassessment: Cyndy Reyes RNsales account manager came to speak with pt regarding insurance. Pt sv has Medicare Part A\T\B. 13:35 Reassessment: Cyndy with [employer] Teaching [employer] to see pt, pt reports he cannot afford one jl7 medication that his doctor prescribed to him but he cannot remember the name. Cyndy instructed pt to go back to the doctor and request a cheaper medication in place of the expensive one. Pt verbalized understanding to Cyndy. 13:46 Reassessment: Patients daughter on the way to pick him up. Patient denies pain at this vc time. Patient states symptoms have improved. Vital Signs: 10:20 BP 200 / 103; Pulse 56; Resp 16; Temp 98; Pulse Ox 99% ; Weight 140.61 kg; Height 5 ft. sv 8 in. (172.72 cm); Pain 0/10; 11:05 BP 161 / 97; Pulse 52 MON; Resp 14; Pulse Ox 99% on R/A; sv 11:44 BP 150 / 84; Pulse 49; Resp 16; Pulse Ox 99% ; sv 12:18 BP 151 / 90; Pulse 49 MON; Resp 18; Pulse Ox 99% ; sv 12:44 BP 143 / 89; Pulse 46; Resp 16; Pulse Ox 98% ; sv 13:33 BP 151 / 91; Pulse 50; Resp 16; Temp 97.7(TE); Pulse Ox 100% on R/A; mh5 10:20 Body Mass Index 47.13 (140.61 kg, 172.72 cm) sv 11:05 Sinus bradycardia sv 12:18 Sinus bradycardia sv NIH Stroke Scale Scores: 10:25 NIHSS Score: 0 sv 11:08 NIHSS Score: 0 jr8 ED Course: 10:15 Patient arrived in ED. am2 10:15 Gonzalo Monte MD is Private Physician. am2 10:20 Arm band placed on Patient placed in an exam room, on a stretcher. sv 10:20 Patient has correct armband on for positive identification. Placed in gown. Bed in low sv position. Call light in reach. Side rails up X 1. shelter monitor on. Pulse ox on. NIBP on. Door closed. Head of bed elevated. 10:31 Kitty Palomares RN is Primary Nurse. sv 10:33 Triage completed. sv 10:34 Amaury Ball PA is PHCP. jr8 10:34 Parht Baldwin DO is Attending Physician. jr8 10:35 Missed attempt(s): 20 gauge in left forearm. Bleeding controlled, band aid applied, jl7 catheter tip intact. 10:40 Initial lab(s) drawn, by me, sent to lab. Inserted saline lock: 20 gauge in left jl7 forearm, using aseptic technique. Blood collected. 10:51 CT Head Brain wo Cont In Process Unspecified. EDMS 10:59 Warm blanket given. sv 11:04 Awaiting for x-ray. sv 11:43 XRAY Chest (1 view) Sent. sv 11:54 XRAY Chest (1 view) In Process Unspecified. EDMS 12:00 Report given to Letha COOPER. sv 13:30 Gonzalo Monte MD is Referral Physician. jr8 13:44 No provider procedures requiring assistance completed. IV discontinued, intact, vc bleeding controlled, No redness/swelling at site. Pressure dressing applied. Administered Medications: 10:58 Drug: hydrALAZINE 10 mg Route: IV; Rate: calculated rate; Site: left forearm; sv 10:59 Follow up: Response: No adverse reaction; IV Status: Completed infusion; IV Intake: sv 0.5ml Point of Care Testing: Blood Glucose: 10:40 Blood Glucose: 115 mg/dL; sv Ranges: Intake: 10:59 IV: 1ml; Total: 1ml. sv Outcome: 13:31 Discharge ordered by . jr8 13:44 Discharged to home via wheelchair. vc 13:44 Condition: good 13:44 Discharge instructions given to patient, family, Instructed on discharge instructions, follow up and referral plans. Demonstrated understanding of instructions, follow-up care. 14:11 Patient left the ED. iw NIH Stroke Scale - NIH Stroke Score Date: 09/03/2019 Time: 10:25 Total Score = 0 1a. Level of Consciousness (LOC) - 0(Alert) 1b. Level of Consciousness (LOC) (Year \T\ Age) - 0(Both) 1c. LOC Commands (Open \T\ Closes Eyes/Manager Hardware) - 0(Both) 2. Best Gaze (Lateral Gaze Paresis) - 0(Normal) 3. Visual Field Loss - 0(No visual loss) 4. Facial Palsy - 0(Normal) 5a. Left Arm: Motor (10-second hold) - 0(No drift) 5b. Right Arm: Motor (10-second hold) - 0(No drift) 6a. Left Leg: Motor (5-second hold - always test supine) - 0(No drift) 6b. Right Leg: Motor (5-second hold - always test supine) - 0(No drift) 7. Limb Ataxia (finger/nose \T\ heel/almeida - test with eyes open) - 0(Absent) 8. Sensory Loss (pinprick arms/legs/face) - 0(Normal) 9. Best Language: Aphasia (description/naming/reading) - 0(No aphasia) 10. Dysarthria (speech clarity - read or repeat words) - 0(Normal) 11. Extinction and Inattention (visual/tactile/auditory/spatial/personal) - 0(No abnormality) Initials: NIH Stroke Scale - NIH Stroke Score Date: 09/03/2019 Time: 11:08 Total Score = 0 1a. Level of Consciousness (LOC) - 0(Alert) 1b. Level of Consciousness (LOC) (Year \T\ Age) - 0(Both) 1c. LOC Commands (Open \T\ Closes Eyes/Manager Hardware) - 0(Both) 2. Best Gaze (Lateral Gaze Paresis) - 0(Normal) 3. Visual Field Loss - 0(No visual loss) 4. Facial Palsy - 0(Normal) 5a. Left Arm: Motor (10-second hold) - 0(No drift) 5b. Right Arm: Motor (10-second hold) - 0(No drift) 6a. Left Leg: Motor (5-second hold - always test supine) - 0(No drift) 6b. Right Leg: Motor (5-second hold - always test supine) - 0(No drift) 7. Limb Ataxia (finger/nose \T\ heel/almeida - test with eyes open) - 0(Absent) 8. Sensory Loss (pinprick arms/legs/face) - 0(Normal) 9. Best Language: Aphasia (description/naming/reading) - 0(No aphasia) 10. Dysarthria (speech clarity - read or repeat words) - 0(Normal) 11. Extinction and Inattention (visual/tactile/auditory/spatial/personal) - 0(No abnormality) Initials: bridget Signatures: Dispatcher [employer] Kitty Fierro RN Liv Khan RN Amaury Merchant PA PA jr8 Jovana Meza [facility] Wei Barton RN RN jl7 Gloria Daniel am2 Letha Vuong RN RN vc Corrections: (The following items were deleted from the chart) 10:59 10:20 BP 200 / 103; Pulse 56bpm; Resp 16bpm; Pulse Ox 99%; 140.61 kg; Height 5 sv ft. 8 in.; BMI: 47.1; Pain 0/10; sv
--- NOTE | 2019-09-03 13:32 | EDPHYS ---
Physician Documentation [facility] Name: Cesar Ching Age: 49 yrs Sex: Male : 1970 Arrival Date: 09/03/2019 Time: 10:15 Bed 4 Private MD: Gonzalo Monte V ED Physician Parth Baldwin HPI: 09/02 11:05 This 49 yrs old Male presents to ER via Ambulatory with complaints of jr8 Numbness, S/S of Possible Stroke. 11:05 Onset: The symptoms/episode began/occurred acutely, today. Associated signs and jr8 symptoms: Pertinent positives: headache. Modifying factors: The patient symptoms are alleviated by prescriptive medication . The patient has not experienced similar symptoms in the past. The patient has not recently seen a physician. Patient stated that he has had posterior headache. Started to have numbness of lips and mouth. Took 150 mg of his metoprolol. Now without headache. Historical: - Allergies: 10:35 No Known Allergies; sv - Home Meds: 10:35 atorvastatin 40 mg Oral tab 1 tab once daily [Active]; metoprolol tartrate 50 mg Oral sv tab 1 tab 2 times per day [Active]; aspirin 81 mg Oral TbEC 1 tab once daily [Active]; - PMHx: 10:35 High Cholesterol; Hypertension; Myocardial infarction; sv - PSHx: 10:35 CABG; sv - Immunization history:: Adult Immunizations up to date. - Social history:: Smoking status: . ROS: 11:08 Eyes: Negative for injury, pain, redness, and discharge, ENT: Negative for injury, jr8 pain, and discharge, Neck: Negative for injury, pain, and swelling, Cardiovascular: Negative for chest pain, palpitations, and edema, Respiratory: Negative for shortness of breath, cough, wheezing, and pleuritic chest pain, Abdomen/GI: Negative for abdominal pain, nausea, vomiting, diarrhea, and constipation, Back: Negative for injury and pain, MS/Extremity: Negative for injury and deformity, Skin: Negative for injury, rash, and discoloration. 11:08 Neuro: Positive for headache, numbness. Exam: 11:08 Eyes: Pupils equal round and reactive to light, extra-ocular motions intact. Lids and jr8 lashes normal. Conjunctiva and sclera are non-icteric and not injected. Cornea within normal limits. Periorbital areas with no swelling, redness, or edema. ENT: Nares patent. No nasal discharge, no septal abnormalities noted. Tympanic membranes are normal and external auditory canals are clear. Oropharynx with no redness, swelling, or masses, exudates, or evidence of obstruction, uvula midline. Mucous membranes moist. Neck: Trachea midline, no thyromegaly or masses palpated, and no cervical lymphadenopathy. Supple, full range of motion without nuchal rigidity, or vertebral point tenderness. No Meningismus. Cardiovascular: Regular rate and rhythm with a normal S1 and S2. No gallops, murmurs, or rubs. Normal PMI, no JVD. No pulse deficits. Respiratory: Lungs have equal breath sounds bilaterally, clear to auscultation and percussion. No rales, rhonchi or wheezes noted. No increased work of breathing, no retractions or nasal flaring. Abdomen/GI: Soft, non-tender, with normal bowel sounds. No distension or tympany. No guarding or rebound. No evidence of tenderness throughout. Back: No spinal tenderness. No costovertebral tenderness. Full range of motion. Skin: Warm, dry with normal turgor. Normal color with no rashes, no lesions, and no evidence of cellulitis. MS/ Extremity: Pulses equal, no cyanosis. Neurovascular intact. Full, normal range of motion. Neuro: Awake and alert, GCS 15, oriented to person, place, time, and situation. Cranial nerves II-XII grossly intact. Motor strength 5/5 in all extremities. Sensory grossly intact. Cerebellar exam normal. Normal gait. 11:08 ECG was reviewed by the Attending Physician. Vital Signs: 10:20 BP 200 / 103; Pulse 56; Resp 16; Temp 98; Pulse Ox 99% ; Weight 140.61 kg; Height 5 ft. sv 8 in. (172.72 cm); Pain 0/10; 11:05 BP 161 / 97; Pulse 52 MON; Resp 14; Pulse Ox 99% on R/A; sv 11:44 BP 150 / 84; Pulse 49; Resp 16; Pulse Ox 99% ; sv 12:18 BP 151 / 90; Pulse 49 MON; Resp 18; Pulse Ox 99% ; sv 12:44 BP 143 / 89; Pulse 46; Resp 16; Pulse Ox 98% ; sv 13:33 BP 151 / 91; Pulse 50; Resp 16; Temp 97.7(TE); Pulse Ox 100% on R/A; mh5 10:20 Body Mass Index 47.13 (140.61 kg, 172.72 cm) sv 11:05 Sinus bradycardia sv 12:18 Sinus bradycardia sv NIH Stroke Scale Scores: 10:25 NIHSS Score: 0 sv 11:08 NIHSS Score: 0 8 MDM: 10:34 Patient medically screened. 8 13:28 Data reviewed: vital signs, nurses notes, lab test result(s), EKG, radiologic studies, jr CT scan, plain films. Data interpreted: Pulse oximetry: on room air is 98 %. Interpretation: normal. Counseling: I had a detailed discussion with the patient and/or guardian regarding: the historical points, exam findings, and any diagnostic results supporting the discharge/admit diagnosis, lab results, radiology results, the need for outpatient follow up, a family practitioner, to return to the emergency department if symptoms worsen or persist or if there are any questions or concerns that arise at home. ED course: Patient asymptomatic after treatment. BP normalized. HR has remained in the 50s for 3+ hours now. No dizziness, diaphoresis, hypotension, or ECG changes. I feel patient is safe to go home as it has been over 4 hours since he took his metoprolol. If worse knows to come back. Otherwise needs to f/u with PCP for medication adjustment . 09/02 10:34 Order name: Basic Metabolic Panel; Complete Time: 11:32 09/02 10:34 Order name: CBC with Diff; Complete Time: 10:57 09/02 10:34 Order name: LFT's; Complete Time: 11:32 09/02 10:34 Order name: Magnesium; Complete Time: 11:32 09/02 10:34 Order name: NT PRO-BNP; Complete Time: 11:32 09/02 10:34 Order name: PT-INR; Complete Time: 11:02 09/02 10:34 Order name: Troponin (emerg Dept Use Only); Complete Time: 11:32 09/02 10:34 Order name: XRAY Chest (1 view); Complete Time: 12:15 09/02 10:34 Order name: EKG; Complete Time: 10:35 /24 10:34 Order name: Cardiac monitoring; Complete Time: :8 09/02 10:35 Order name: CT Head Brain wo Cont; Complete Time: : jr8 09/02 10:53 Order name: Glucose, Ancillary Testing; Complete Time: 10:57 EDMS 09/02 13:00 Order name: Diet Heart Healthy; Complete Time: 13:00 sv 09/02 10:34 Order name: EKG - Nurse/Tech; Complete Time: : jr8 09/02 10:34 Order name: IV Saline Lock; Complete Time: : jr8 09/02 10:34 Order name: Labs collected and sent; Complete Time: : jr8 09/02 10:34 Order name: O2 Per Protocol; Complete Time: 09/02 10:34 Order name: O2 Sat Monitoring; Complete Time: : EC:08 Rate is 49 beats/min. Rhythm is regular, Sinus bradycardia. QRS [place] is Normal. MS jr8 interval is normal at 140 msec. QRS interval is normal at 94 msec. QT interval is normal at 424 msec. No Q waves. T waves are Inverted in leads I, aVL, V6. No ST changes noted. Clinical impression: NSR w/ Non-specific ST/T Changes. Interpreted by me. Reviewed by me. Administered Medications: 10:58 Drug: hydrALAZINE 10 mg Route: IV; Rate: calculated rate; Site: left forearm; sv 10:59 Follow up: Response: No adverse reaction; IV Status: Completed infusion; IV Intake: sv 0.5ml Point of Care Testing: Blood Glucose: 10:40 Blood Glucose: 115 mg/dL; sv Ranges: Critical Glucose Levels:Adult <50 mg/dl or >400 mg/dl <40 mg/dl or >180 mg/dl Disposition: 15:29 Co-signature as Attending Physician, Parth Baldwin DO I agree with the assessment and ms3 plan of care. Disposition: 09/03/19 13:31 Discharged to Home. Impression: Hypertensive Emergency . - Condition is Stable. - Discharge Instructions: Hypertension. - Medication Reconciliation Form, Thank You Letter, Antibiotic Education, Prescription Opioid Use form. - Follow up: Gonzalo Monte MD; When: 2 - 3 days; Reason: Recheck today's complaints, Continuance of care, Re-evaluation by your physician. - Problem is new. - Symptoms have improved. NIH Stroke Scale - NIH Stroke Score Date: 09/03/2019 Time: 10:25 Total Score = 0 1a. Level of Consciousness (LOC) - 0(Alert) 1b. Level of Consciousness (LOC) (Year \T\ Age) - 0(Both) 1c. LOC Commands (Open \T\ Closes Eyes/Joint Finisher) - 0(Both) 2. Best Gaze (Lateral Gaze Paresis) - 0(Normal) 3. Visual Field Loss - 0(No visual loss) 4. Facial Palsy - 0(Normal) 5a. Left Arm: Motor (10-second hold) - 0(No drift) 5b. Right Arm: Motor (10-second hold) - 0(No drift) 6a. Left Leg: Motor (5-second hold - always test supine) - 0(No drift) 6b. Right Leg: Motor (5-second hold - always test supine) - 0(No drift) 7. Limb Ataxia (finger/nose \T\ heel/almeida - test with eyes open) - 0(Absent) 8. Sensory Loss (pinprick arms/legs/face) - 0(Normal) 9. Best Language: Aphasia (description/naming/reading) - 0(No aphasia) 10. Dysarthria (speech clarity - read or repeat words) - 0(Normal) 11. Extinction and Inattention (visual/tactile/auditory/spatial/personal) - 0(No abnormality) Initials: NIH Stroke Scale - NIH Stroke Score Date: 09/03/2019 Time: 11:08 Total Score = 0 1a. Level of Consciousness (LOC) - 0(Alert) 1b. Level of Consciousness (LOC) (Year \T\ Age) - 0(Both) 1c. LOC Commands (Open \T\ Closes Eyes/Joint Finisher) - 0(Both) 2. Best Gaze (Lateral Gaze Paresis) - 0(Normal) 3. Visual Field Loss - 0(No visual loss) 4. Facial Palsy - 0(Normal) 5a. Left Arm: Motor (10-second hold) - 0(No drift) 5b. Right Arm: Motor (10-second hold) - 0(No drift) 6a. Left Leg: Motor (5-second hold - always test supine) - 0(No drift) 6b. Right Leg: Motor (5-second hold - always test supine) - 0(No drift) 7. Limb Ataxia (finger/nose \T\ heel/almeida - test with eyes open) - 0(Absent) 8. Sensory Loss (pinprick arms/legs/face) - 0(Normal) 9. Best Language: Aphasia (description/naming/reading) - 0(No aphasia) 10. Dysarthria (speech clarity - read or repeat words) - 0(Normal) 11. Extinction and Inattention (visual/tactile/auditory/spatial/personal) - 0(No abnormality) Initials: bridget Signatures: Dispatcher [employer] EDKitty Estrada RN RN sv Liv Doherty RN RN iw Amaury Ball PA PA jr8 Parth Baldwin DO DO ms3 Corrections: (The following items were deleted from the chart) 14:11 13:31 09/03/2019 13:31 Discharged to Home. Impression: Hypertensive Emergency . iw Condition is Stable. Forms are Medication Reconciliation Form, Thank You Letter, Antibiotic Education, Prescription Opioid Use. Follow up: Gonzalo Monte; When: 2 - 3 days; Reason: Recheck today's complaints, Continuance of care, Re-evaluation by your physician. Problem is new. Symptoms have improved. jr8
[2019-09-03 14:31] VITALS: BP 151/91; TEMP 97.7; O2SAT 100
--- NOTE | 2019-09-03 14:36 | EKG ---
Test Date: 2019-09-03 Test Time: 10:39:19 Teasel Gig Operator: NEISHA MEASUREMENT RESULTS: Intervals: Rate: 49 CT: 140 QRSD: 94 QT: 470 QTc: 424 Orrum: P: 18 CT: 140 QRS: 35 T: 87 INTERPRETIVE STATEMENTS: Marked sinus bradycardia Abnormal ECG Compared to ECG 02/15/2018 21:16:25 ST (T wave) deviation no longer present Possible ischemia no longer present Electronically Signed On 09-03-19 14:35:34 CDT by Rusty Ruby
== END 2019-09-03 14:11 | disposition home or self-care (01) ==
LOC: ER 10:14
DX: I16.1 Hypertensive emergency (principal); I10 Essential (primary) hypertension; E78.00 Pure hypercholesterolemia, unspecified; Z95.1 Presence of aortocoronary bypass graft; Z79.82 Long term (current) use of aspirin
CPT/HCPCS: 93005; 85025; 80048; 36415; 83735; 85610; 82947; 80076; 84484; 83880; 70450; 71045; 96374; 99284; J0360

== ENCOUNTER 2019-09-03 18:38 | Emergency (ER) | payer OTHER ==
--- OUTSIDE RECORDS SUMMARY | 2019-09-03 18:46 | XMS REPORT ---
:1970 Author Organization [facility] t Address [address] [place] [address] Care Team Providers Name Role Phone MASSUMI [...] TIME (BEAKER) (test 252 sec TESTED AT [facility] [address] code = 441) [place] [address] [id number] 09:31:00 Test Item Value Reference Range Comments ACTIVATED CLOTTING TIME 125 sec TESTED A T [facility] [address] (BEAKER) (test code = 441) [place] [address] HEMOGLOBIN [id number] 12:16:00 Test Item Value Reference Range Comments HEMOGLOBIN A1C (BEAKER) (test code = 368) 5.2 % 4.3-6. 1 LIPID [id number] 07:38:00 Test Item Value Reference Range Comments [...] 130-159 High 160-189 Very High >=190BASIC METABOLIC [id number] 07:38:00 Test Item Value Reference Range Comments [...] = 1092) TO CALCULATE EST IMATED GFR. [id number] 07:37:00 Test Item Value Reference Range Comments [...]
[2019-09-03 19:14] LABS: Absolute Lymphocytes (CBC) 2.5 K/uL (0.7-4.9); Basophils % 0.9 % (0-1.3); Hematocrit 44.5 % (39.6-49.0); Lymphocytes % 29.2 % (15.3-44.8); MPV 10.9 fL (7.6-11.3); RBC Red Blood Cell Count 5.14 M/uL (4.33-5.43)
--- NOTE | 2019-09-03 19:17 | RAD REPORT ---
EXAM DESCRIPTION: CT - Ct Stroke Brain Wo Cont - 09/03/2019 7:03 pm CLINICAL HISTORY: SLURRED SPEECH, worsening headache, numbness of the lips COMPARISON: Head Brain Wo Cont dated 09/03/2019 TECHNIQUE: Axial 5 millimeter thick images of the head were obtained without IV contrast. All CT scans are performed using dose optimization technique as appropriate and may include automated exposure control or mA/KV adjustment according to patient size. FINDINGS: No intracranial hemorrhage, mass, or cerebral edema. No acute cortical based infarction id entifiable. No cortical edema or sulcal effacement. No atrophy or chronic ischemic changes identifiab le. Ventricles are normal in size. [place]dermott matter - white matter not clearly different from comparison. Physiologic calcifications present. No globe or orbital content abnormality seen. Visualized portions of the mastoid air cells, paranasal sinuses, and orbits are unremarkable. Findings telephoned to the referring clinician 7:13 p.m. IMPRESSION: No CT evidence of acute intracranial process. No significant change from comparison. Continued concerns for acute CVA could be addressed with MR im aging.
[2019-09-03 19:26] LABS: Protime INR 0.99
[2019-09-03 19:32] LABS: BUN Blood Urea Nitrogen 15 mg/dL (7-18); Bicarbonate 25 mmol/L (21-32); Glucose Level 115 mg/dL (74-106); Potassium 3.6 mmol/L (3.5-5.1); Sodium Level 140 mmol/L (136-145)
--- NOTE | 2019-09-03 20:20 | RAD REPORT ---
EXAM DESCRIPTION: RAD - Chest Single View - 09/03/2019 7:15 pm CLINICAL HISTORY: Facial droop, slurred speech, shortness of breath COMPARISON: Portable August 02 TECHNIQUE: AP portable chest image was obtained 09/03/2019 7:15 pm . FINDINGS: Lung volumes are low. Large body habitus is limiting. Interstitial pattern is not substant ially different from comparison. No peripheral mass or consolidation. Cardiomegaly is present but sta ble. Vasculature is similar to comparison. No measurable pleural effusion and no pneumothorax. No acu te bony abnormality seen. No acute aortic findings suspected. IMPRESSION: Limited portable imaging showing no acute cardiopulmonary finding. No significant change from comparison.
[2019-09-03] MEDS ORDERED: ACETAMINOPHEN 500 MG TAB ONE (22:09)
--- NOTE | 2019-09-03 22:25 | ER ---
Nurse's Notes [facility] Name: Cesar Ching Age: 49 yrs Sex: Male : 1970 Arrival Date: 09/03/2019 Time: 18:46 Bed 2 Private MD: Diagnosis: Paresthesia of skin-left face;Left facial weakness Presentation: 09/02 18:46 Chief complaint: EMS states: Pt was discharged from here about 1400, since he's left he jl7 has increased numbness to tongue and left side of face. Family reported on discharge pt's facial droop was worse than it was this morning and has worsened over the last couple of hours. Dr. Proctor and Mariza INSTALLMENT ACCOUNT CHECKER at bedside. 18:46 Coronavirus screen: Proceed with normal triage. Patient denies a cough. Patient denies jl7 shortness of breath or difficulty breathing. Patient denies measured and/or subjective temperature greater than 100.4F prior to today's visit. Patient denies travel on a cruise ship or to a country the [facility] currently lists as an affected area. Patient denies contact with known and/or suspected case of COVID-19. Ebola Screen: No symptoms or risks identified at this time. Initial Sepsis Screen: Does the patient meet any 2 criteria? No. Patient's initial sepsis screen is negative. Does the patient have a suspected source of infection? No. Patient's initial sepsis screen is negative. Risk Assessment: Do you want to hurt yourself or someone else? Patient reports no desire to harm self or others. Onset of symptoms is unknown. Care prior to arrival: IV initiated. 20 GA, in the left forearm, Glucose check: 117. 18:46 Method Of Arrival: EMS: [facility] 18:46 Acuity: JING 2 jl7 Historical: - Allergies: 19:06 No Known Allergies; jl7 - Home Meds: 19:06 aspirin 81 mg Oral TbEC 1 tab once daily [Active]; atorvastatin 40 mg Oral tab 1 tab jl7 once daily [Active]; lisinopril 40 mg Oral tab 1 tab once daily [Active]; metoprolol tartrate 50 mg Oral tab 1 tab 2 times per day [Active]; nitroglycerin 0.4 mg SL subl 1 tab every 5 minutes [Active]; - PMHx: 19:06 High Cholesterol; Hypertension; Myocardial infarction; jl7 - PSHx: 19:06 CABG; jl7 - Immunization history:: Adult Immunizations unknown. - Social history:: Smoking status: Patient denies any tobacco usage or history of. Screenin:34 Abuse screen: Denies threats or abuse. Denies injuries from another. Nutritional rv screening: No deficits noted. Tuberculosis screening: No symptoms or risk factors identified. Fall Risk None identified. 22:07 The patient has not been NPO before screening. The patient is alert, able to follow rv commands. The patient does not exhibit slurred or garbled speech The patient is not exhibiting difficulty speaking. The patient does not exhibit difficulty understanding words. The patient is able to swallow own secretions with no drooling or need for suction. Patient tolerated one teaspoon of water. No drooling, immediate coughing, gurgling, or clearing of the throat was noted. The patient tolerated 90mL of water. No drooling, immediate coughing, gurgling, or clearing of the throat was noted. The patient passed the bedside swallow screening. Oral medications may be given as ordered. Contact Physician for further diet orders. Provider notified of bedside swallow screening results: Mariza WOODRUFFP-C. Assessment: 19:33 General: Appears comfortable, Behavior is calm, cooperative. Pain: Denies pain. Neuro: rv Level of Consciousness is awake, alert, obeys commands, Oriented to person, place, time, situation. Cardiovascular: Patient's skin is warm and dry. Rhythm is sinus bradycardia. Respiratory: Airway is patent Respiratory effort is even, unlabored. Derm: Skin is intact. Musculoskeletal: No signs and/or symptoms reported regarding the musculoskeletal system. 20:27 Neuro: Level of Consciousness is awake, alert, obeys commands, Oriented to person, rv place, time, situation, Moves all extremities. Full function Facial droop on right. 21:40 Reassessment: Patient and/or family updated on plan of care and expected duration. Pain rv level reassessed. Patient is alert, oriented x 3, equal unlabored respirations, skin warm/dry/pink. Neuro: Level of Consciousness is awake, alert, obeys commands, Oriented to person, place, time, situation, Moves all extremities. Full function Facial droop on right. 21:41 Reassessment: FAMILY UPDATED ON THE PLAN OF CARE AND PATIENT'S STATUS. DAUGHTER TALKED rv TO THE PATIENT AND EXPLAINED. PATIENT AGREED. 23:01 Reassessment: No changes from previously documented assessment. Patient and/or family rv updated on plan of care and expected duration. Pain level reassessed. Patient is alert, oriented x 3, equal unlabored respirations, skin warm/dry/pink. Neuro: Level of Consciousness is awake, alert, obeys commands, Oriented to person, place, time, situation, Moves all extremities. Full function Facial droop on right. 23:02 Reassessment: FAMILY UPDATED THROUGH PHONE CALL REGARDING TRANSFER. rv 23:57 Neuro: Level of Consciousness is awake, alert, obeys commands, Oriented to person, rv place, time, situation, Moves all extremities. Full function Speech is normal, Facial droop on right, Pupils are PERRLA. Vital Signs: 18:46 BP 200 / 95; Pulse 61; Resp 19 S; Pulse Ox 97% on R/A; Weight 140.61 kg (R); jl7 19:34 BP 175 / 101; Pulse 58; Resp 16; Pulse Ox 97% on R/A; rv 19:45 BP 179 / 96; Pulse 58; Resp 19; Pulse Ox 96% on R/A; rv 20:00 BP 178 / 94; Pulse 57; Resp 18; Pulse Ox 97% on R/A; rv 20:15 BP 170 / 97; Pulse 58; Resp 18; Pulse Ox 96% ; rv 21:00 BP 169 / 100; Pulse 59; Resp 15; Pulse Ox 97% on R/A; rv 21:30 BP 175 / 104; Pulse 63; Resp 16; Pulse Ox 98% on R/A; rv 22:00 BP 177 / 100; Pulse 77; Resp 17; Temp 98.2; Pulse Ox 97% on R/A; rv 22:30 BP 174 / 104; Pulse 65; Resp 14; Pulse Ox 98% on R/A; rv 22:45 BP 149 / 97; Pulse 62; Resp 14; Pulse Ox 96% on R/A; rv 23:15 BP 152 / 101; Pulse 63; Resp 14; Pulse Ox 96% on R/A; rv 23:57 BP 153 / 100; Pulse 65; Resp 15; Temp 98; Pulse Ox 97% on R/A; Pain 0/10; rv Vitals: 23:57 Cardiac Rhythm Assessment Regular. rv Erie Coma Score: 20:26 Eye Response: spontaneous(4). Verbal Response: oriented(5). Motor Response: obeys rv commands(6). Total: 15. 22:06 Eye Response: spontaneous(4). Verbal Response: oriented(5). Motor Response: obeys rv commands(6). Total: 15. 23:57 Eye Response: spontaneous(4). Verbal Response: oriented(5). Motor Response: obeys rv commands(6). Total: 15. NIH Stroke Scale Scores: 20:07 NIHSS Score: 2 kb 22:43 NIHSS Score: 2 rv ED Course: 18:46 Patient arrived in ED. am2 18:59 Mariza Vargas FNP-C is [facility]. kb 18:59 Parth Baldwin DO is Attending Physician. kb 19:00 Patient has correct armband on for positive identification. Bed in low position. Call mh5 light in reach. Side rails up X2. air sampling and monitoring on. Pulse ox on. NIBP on. 19:01 Maintain EMS IV. Dressing intact. mh5 19:03 CT Stroke Brain w/o Contrast In Process Unspecified. EDMS 19:04 Triage completed. jl7 19:06 Arm band placed on right wrist. jl7 19:12 Attending Physician role handed off by Parth Baldwin DO kdr 19:12 Chiki Rodriguez MD is Attending Physician. kdr 19:15 Stroke CXR 1 View In Process Unspecified. EDMS 19:32 Aries Del Rio, ALLISON is Primary Nurse. rv 19:34 Warm blanket given. rv 19:34 No provider procedures requiring assistance completed. rv 21:40 Intiated transfer with [facility] transfer center. Spoke with Archana Barreto. dh4 21:56 Connected Nadege CARMEN with physician from [facility] for pt consult. dh4 22:13 Archana from [facility] transfer called to connect Dr Degroot with Nadege CARMEN. dh4 23:58 IV is patent, with fluids infusing freely, with good blood return, Patient transferred, rv IV remains in place. Administered Medications: 22:08 Drug: Tylenol 1000 mg Route: PO; rv 23:56 Follow up: Response: No adverse reaction; Marked relief of symptoms; Pain is decreased rv 22:25 Drug: Aspirin Chewable Tablet 243 mg Route: PO; rv 23:56 Follow up: Response: No adverse reaction rv 23:56 Not Given (NOT INDICATED): hydrALAZINE 10 mg IV at calculated rate once rv Outcome: 22:23 Discharge ordered by . tay 22:24 ER care complete, transfer ordered by . tay 23:58 Transferred by ground EMS to [facility], Transfer form completed. rv X-rays sent w/ patient. 23:58 Condition: stable 23:58 Discharge instructions given to patient, family, Instructed on the need for transfer. 23:58 Patient left the ED. rv NIH Stroke Scale - NIH Stroke Score Date: 09/03/2019 Time: 20:07 Total Score = 2 1a. Level of Consciousness (LOC) - 0(Alert) 1b. Level of Consciousness (LOC) (Year \T\ Age) - 0(Both) 1c. LOC Commands (Open \T\ Closes Eyes/Telecommunication Systems Designer) - 0(Both) 2. Best Gaze (Lateral Gaze Paresis) - 0(Normal) 3. Visual Field Loss - 0(No visual loss) 4. Facial Palsy - 1(Minor Paralysis) 5a. Left Arm: Motor (10-second hold) - 0(No drift) 5b. Right Arm: Motor (10-second hold) - 0(No drift) 6a. Left Leg: Motor (5-second hold - always test supine) - 0(No drift) 6b. Right Leg: Motor (5-second hold - always test supine) - 0(No drift) 7. Limb Ataxia (finger/nose \T\ heel/almeida - test with eyes open) - 0(Absent) 8. Sensory Loss (pinprick arms/legs/face) - 1(Mild to moderate loss) 9. Best Language: Aphasia (description/naming/reading) - 0(No aphasia) 10. Dysarthria (speech clarity - read or repeat words) - 0(Normal) 11. Extinction and Inattention (visual/tactile/auditory/spatial/personal) - 0(No abnormality) Initials: tay NIH Stroke Scale - NIH Stroke Score Date: 09/03/2019 Time: 22:43 Total Score = 2 1a. Level of Consciousness (LOC) - 0(Alert) 1b. Level of Consciousness (LOC) (Year \T\ Age) - 0(Both) 1c. LOC Commands (Open \T\ Closes Eyes/Telecommunication Systems Designer) - 0(Both) 2. Best Gaze (Lateral Gaze Paresis) - 0(Normal) 3. Visual Field Loss - 0(No visual loss) 4. Facial Palsy - 2(Partial paralysis) 5a. Left Arm: Motor (10-second hold) - 0(No drift) 5b. Right Arm: Motor (10-second hold) - 0(No drift) 6a. Left Leg: Motor (5-second hold - always test supine) - 0(No drift) 6b. Right Leg: Motor (5-second hold - always test supine) - 0(No drift) 7. Limb Ataxia (finger/nose \T\ heel/almeida - test with eyes open) - 0(Absent) 8. Sensory Loss (pinprick arms/legs/face) - 0(Normal) 9. Best Language: Aphasia (description/naming/reading) - 0(No aphasia) 10. Dysarthria (speech clarity - read or repeat words) - 0(Normal) 11. Extinction and Inattention (visual/tactile/auditory/spatial/personal) - 0(No abnormality) Initials: rv Signatures: Dispatcher [employer] EDMS Mariza Vargas, QUILTER FIXER-C QUILTER FIXER-Ckb Chiki Rodriguez MD MD kdr Martinez, Maria 5 Wei Barton RN RN 7 Gloria Daniel Ronaldo, ALLISON RN rv Joe Perez 4 Corrections: (The following items were deleted from the chart) 22:44 22:42 NIHSS Score: 0 rv rv
--- NOTE | 2019-09-03 22:26 | EDPHYS ---
Physician Documentation [facility] Name: Cesar Ching Age: 49 yrs Sex: Male : 1970 Arrival Date: 09/03/2019 Time: 18:46 Bed 2 Private MD: ED Physician Chiki Rodriguez HPI: 09/02 19:32 This 49 yrs old Male presents to ER via EMS with complaints of left facial kb droop and left sided facial numbness. 19:32 The patient's problem is reported as a facial droop, on left, paresthesias, in left kb side of face. Onset: The symptoms/episode began/occurred last night. Duration: The episode is continuous, the symptoms became worse. Context: the episode(s) was witnessed, by family, symptoms became apparent upon waking, occurred at home, occurred while the patient was asleep. The symptoms are alleviated by nothing. The symptoms are aggravated by nothing. Associated signs and symptoms: Pertinent positives: numbness, facial droop, facial numbness. Severity of symptoms: At their worst the symptoms were moderate in the emergency department the symptoms are unchanged. Patient's baseline: Neuro: alert and fully oriented, Motor: left-sided facial droop, Ambulation: walks without assistance, Speech: normal. The patient has not experienced similar symptoms in the past. The patient has been recently seen at the [facility] Emergency Department, today, for similar complaints labs were performed, CT scan was performed. 19:37 Pt had a headache last night at 2100, took Tylenol and went to sleep. Woke up at 0700 kb with headache, left facial droop, left sided facial numbness and slight slurred speech. Came to ER this morning and was evaluated for symptoms. Negative CT and labs, pt was monitored and discharged home. Family reports facial droop was worse when he left and progressed until now when they called EMS to bring him back in. No other neuro deficits. . Historical: - Allergies: 19:06 No Known Allergies; jl7 - Home Meds: 19:06 aspirin 81 mg Oral TbEC 1 tab once daily [Active]; atorvastatin 40 mg Oral tab 1 tab jl7 once daily [Active]; lisinopril 40 mg Oral tab 1 tab once daily [Active]; metoprolol tartrate 50 mg Oral tab 1 tab 2 times per day [Active]; nitroglycerin 0.4 mg SL subl 1 tab every 5 minutes [Active]; - PMHx: 19:06 High Cholesterol; Hypertension; Myocardial infarction; jl7 - PSHx: 19:06 CABG; jl7 - Immunization history:: Adult Immunizations unknown. - Social history:: Smoking status: Patient denies any tobacco usage or history of. ROS: 19:48 Constitutional: Negative for fever, chills, and weight loss, Eyes: Negative for injury, kb pain, redness, and discharge, ENT: Negative for injury, pain, and discharge, Neck: Negative for injury, pain, and swelling, Cardiovascular: Negative for chest pain, palpitations, and edema, Respiratory: Negative for shortness of breath, cough, wheezing, and pleuritic chest pain, Abdomen/GI: Negative for abdominal pain, nausea, vomiting, diarrhea, and constipation, Back: Negative for injury and pain, MS/Extremity: Negative for injury and deformity, Skin: Negative for injury, rash, and discoloration. 19:48 Neuro: Positive for numbness, speech changes. Exam: 20:07 Radiologist reports: no acute finding kb 22:24 Constitutional: This is a well developed, well nourished patient who is awake, alert, kb and in no acute distress. Head/Face: Normocephalic, atraumatic. Eyes: Pupils equal round and reactive to light, extra-ocular motions intact. Lids and lashes normal. Conjunctiva and sclera are non-icteric and not injected. Cornea within normal limits. Periorbital areas with no swelling, redness, or edema. ENT: Nares patent. No nasal discharge, no septal abnormalities noted. Tympanic membranes are normal and external auditory canals are clear. Oropharynx with no redness, swelling, or masses, exudates, or evidence of obstruction, uvula midline. Mucous membranes moist. Neck: Trachea midline, no thyromegaly or masses palpated, and no cervical lymphadenopathy. Supple, full range of motion without nuchal rigidity, or vertebral point tenderness. No Meningismus. Chest/axilla: Normal chest wall appearance and motion. Nontender with no deformity. No lesions are appreciated. Cardiovascular: Regular rate and rhythm with a normal S1 and S2. No gallops, murmurs, or rubs. Normal PMI, no JVD. No pulse deficits. Respiratory: Lungs have equal breath sounds bilaterally, clear to auscultation and percussion. No rales, rhonchi or wheezes noted. No increased work of breathing, no retractions or nasal flaring. Abdomen/GI: Soft, non-tender, with normal bowel sounds. No distension or tympany. No guarding or rebound. No evidence of tenderness throughout. Skin: Warm, dry with normal turgor. Normal color with no rashes, no lesions, and no evidence of cellulitis. MS/ Extremity: Pulses equal, no cyanosis. Neurovascular intact. Full, normal range of motion. 22:24 Neuro: Orientation: is normal, to person, place, time \T\ situation. Mentation: is normal, able to follow commands, Memory: is normal, Cranial nerves: visual nelson are intact. extraocular movements are intact, facial droop noted on left, with forehead spared. Decreased sensation on left cheek and left jaw, Cerebellar function: is grossly normal, Motor: is normal, moves all fours, strength is 5/5 in all extremities. 09/03 04:49 ECG was reviewed by the Attending Physician. kdr Vital Signs: 09/02 18:46 BP 200 / 95; Pulse 61; Resp 19 S; Pulse Ox 97% on R/A; Weight 140.61 kg (R); jl7 19:34 BP 175 / 101; Pulse 58; Resp 16; Pulse Ox 97% on R/A; rv 19:45 BP 179 / 96; Pulse 58; Resp 19; Pulse Ox 96% on R/A; rv 20:00 BP 178 / 94; Pulse 57; Resp 18; Pulse Ox 97% on R/A; rv 20:15 BP 170 / 97; Pulse 58; Resp 18; Pulse Ox 96% ; rv 21:00 BP 169 / 100; Pulse 59; Resp 15; Pulse Ox 97% on R/A; rv 21:30 BP 175 / 104; Pulse 63; Resp 16; Pulse Ox 98% on R/A; rv 22:00 BP 177 / 100; Pulse 77; Resp 17; Temp 98.2; Pulse Ox 97% on R/A; rv 22:30 BP 174 / 104; Pulse 65; Resp 14; Pulse Ox 98% on R/A; rv 22:45 BP 149 / 97; Pulse 62; Resp 14; Pulse Ox 96% on R/A; rv 23:15 BP 152 / 101; Pulse 63; Resp 14; Pulse Ox 96% on R/A; rv 23:57 BP 153 / 100; Pulse 65; Resp 15; Temp 98; Pulse Ox 97% on R/A; Pain 0/10; rv NIH Stroke Scale Scores: 20:07 NIHSS Score: 2 kb 22:43 NIHSS Score: 2 rv Ritika Coma Score: 20:26 Eye Response: spontaneous(4). Verbal Response: oriented(5). Motor Response: obeys rv commands(6). Total: 15. 22:06 Eye Response: spontaneous(4). Verbal Response: oriented(5). Motor Response: obeys rv commands(6). Total: 15. 23:57 Eye Response: spontaneous(4). Verbal Response: oriented(5). Motor Response: obeys rv commands(6). Total: 15. MDM: 18:59 Patient medically screened. kb 20:15 Data reviewed: vital signs, nurses notes. Data interpreted: Pulse oximetry: on room air kb is 97 %. Interpretation: normal. Physician consultation: Ishmael Morel MD was called at 20:10, regarding consult, patient's condition, voicemail left, awaiting callback. ED course: TPA not administered due to unknown onset of symptoms and disability is not sufficient to outweigh the risks. . 20:55 Physician consultation: Ishmael Morel MD was contacted at 20:55, regarding consult, kb patient's condition, after a discussion of the case, a recommendation for transfer for higher level of care is made. 22:00 ED course: Pt accepted for consult by Dr Lorenzo, neurologist at [facility]. kb 22:21 Counseling: I had a detailed discussion with the patient and/or guardian regarding: the historical points, exam findings, and any diagnostic results supporting the discharge/admit diagnosis, lab results, radiology results, the need to transfer to another facility, for higher level of care, [facility] does not immediately have the required specialist. Physician consultation:. ED course: Dr Degroot, hospitalist, accepted pt for transfer to [facility]. 09/02 18:50 Order name: Basic Metabolic Panel; Complete Time: 19:36 ms3 09/02 18:50 Order name: CBC with Diff; Complete Time: 19:31 ms3 09/02 18:50 Order name: Protime (+inr); Complete Time: 19:36 ms3 09/02 18:50 Order name: Ptt, Activated; Complete Time: 19:36 ms3 09/02 18:50 Order name: CT Stroke Brain w/o Contrast; Complete Time: 19:21 ms3 09/02 19:31 Order name: Glucose, Ancillary Testing; Complete Time: 19:31 EDMS 09/02 18:50 Order name: Stroke CXR 1 View; Complete Time: 20:28 ms3 09/02 18:50 Order name: EKG; Complete Time: 18:51 ms3 09/02 18:50 Order name: Accucheck; Complete Time: 19:22 ms3 09/02 18:50 Order name: Cardiac monitoring; Complete Time: 19:01 ms3 09/02 18:50 Order name: EKG - Nurse/Tech; Complete Time: 19:14 ms3 09/02 18:50 Order name: IV Saline Lock; Complete Time: 19:02 ms3 09/02 18:50 Order name: Labs collected and sent; Complete Time: 19:32 ms3 09/02 18:50 Order name: NPO; Complete Time: 19:32 ms3 09/02 18:50 Order name: O2 Per Protocol; Complete Time: 19:33 ms3 09/02 18:50 Order name: O2 Sat Monitoring; Complete Time: 19:33 ms3 09/02 18:50 Order name: Stroke Swallow Screen; Complete Time: 19:33 ms3 EC/25 04:49 Rate is 61 beats/min. Rhythm is regular, Normal Sinus Rhythm with No ectopy. QRS [place] kdr is Normal. [place] interval is normal. QRS interval is normal. QT interval is normal. Clinical impression: NSR w/ Non-specific ST/T Changes. Administered Medications: 09/02 22:08 Drug: Tylenol 1000 mg Route: PO; rv 23:56 Follow up: Response: No adverse reaction; Marked relief of symptoms; Pain is decreased rv 22:25 Drug: Aspirin Chewable Tablet 243 mg Route: PO; rv 23:56 Follow up: Response: No adverse reaction rv 23:56 Not Given (NOT INDICATED): hydrALAZINE 10 mg IV at calculated rate once rv Disposition: 09/03 06:33 Co-signature as Attending Physician, Chiki Rodriguez MD I agree with the assessment and kdr plan of care. Disposition: 09/03/19 22:[address] [facility]. Diagnosis are Paresthesia of skin - left face, Left facial weakness. - Reason for transfer: Higher level of care. - Accepting physician is Dr Degroot. - Condition is Stable. - Problem is new. - Symptoms are unchanged. NIH Stroke Scale - NIH Stroke Score Date: 09/03/2019 Time: 20:07 Total Score = 2 1a. Level of Consciousness (LOC) - 0(Alert) 1b. Level of Consciousness (LOC) (Year \T\ Age) - 0(Both) 1c. LOC Commands (Open \T\ Closes Eyes/Talent Coordinator) - 0(Both) 2. Best Gaze (Lateral Gaze Paresis) - 0(Normal) 3. Visual Field Loss - 0(No visual loss) 4. Facial Palsy - 1(Minor Paralysis) 5a. Left Arm: Motor (10-second hold) - 0(No drift) 5b. Right Arm: Motor (10-second hold) - 0(No drift) 6a. Left Leg: Motor (5-second hold - always test supine) - 0(No drift) 6b. Right Leg: Motor (5-second hold - always test supine) - 0(No drift) 7. Limb Ataxia (finger/nose \T\ heel/[place]meida - test with eyes open) - 0(Absent) 8. Sensory Loss (pinprick arms/legs/face) - 1(Mild to moderate loss) 9. Best Language: Aphasia (description/naming/reading) - 0(No aphasia) 10. Dysarthria (speech clarity - read or repeat words) - 0(Normal) 11. Extinction and Inattention (visual/tactile/auditory/spatial/personal) - 0(No abnormality) Initials: NIH Stroke Scale - NIH Stroke Score Date: 09/03/2019 Time: 22:43 Total Score = 2 1a. Level of Consciousness (LOC) - 0(Alert) 1b. Level of Consciousness (LOC) (Year \T\ Age) - 0(Both) 1c. LOC Commands (Open \T\ Closes Eyes/Talent Coordinator) - 0(Both) 2. Best Gaze (Lateral Gaze Paresis) - 0(Normal) 3. Visual Field Loss - 0(No visual loss) 4. Facial Palsy - 2(Partial paralysis) 5a. Left Arm: Motor (10-second hold) - 0(No drift) 5b. Right Arm: Motor (10-second hold) - 0(No drift) 6a. Left Leg: Motor (5-second hold - always test supine) - 0(No drift) 6b. Right Leg: Motor (5-second hold - always test supine) - 0(No drift) 7. Limb Ataxia (finger/nose \T\ heel/[place] - test with eyes open) - 0(Absent) 8. Sensory Loss (pinprick arms/legs/face) - 0(Normal) 9. Best Language: Aphasia (description/naming/reading) - 0(No aphasia) 10. Dysarthria (speech clarity - read or repeat words) - 0(Normal) 11. Extinction and Inattention (visual/tactile/auditory/spatial/personal) - 0(No abnormality) Initials: rv Signatures: Dispatcher [employer] EDMS Mariza Vargas, SET UP INSPECTOR-C SET UP INSPECTOR-Ckb Chiki Rodriguez MD MD [facility] Wei Barton RN RN jl7 Aries Del Rio RN RN rv Parth Baldwin DO DO ms3 Corrections: (The following items were deleted from the chart) 09/02 22:23 22:23 09/03/2019 22:23 Discharged to Home. Impression: Left sided facial droop; kb Paresthesia of skin - left face. Condition is Stable. Forms are Medication Reconciliation Form, Thank You Letter, Antibiotic Education, Prescription Opioid Use. Follow up: Emergency Department; When: As needed; Reason: Worsening of condition. Follow up: Private Physician; When: 2 - 3 days; Reason: Recheck today's complaints, Continuance of care, Re-evaluation by your physician. kb 22:24 22:24 09/03/2019 22:24 Transfer ordered to [facility]. Diagnosis is Paresthesia of skin - left face; Left facial droop. Reason for transfer: Higher level of care. Accepting physician is Dr Degroot. Condition is Stable. Problem is new. Symptoms are unchanged. kb 23:58 22:24 09/03/2019 22:[address] [facility]. Diagnosis is Paresthesia of skin - left face; Left facial weakness. Reason for transfer: Higher level of care. Accepting physician is Dr Degroot. Condition is Stable. Problem is new. Symptoms are unchanged. kb
[2019-09-03] MEDS ORDERED: ASPIRIN 81 MG CHEWABLE TABLET ONE (22:27)
[2019-09-04] MEDS ORDERED: HYDRALAZINE HCL 20 MG/ML VIAL ONE
[2019-09-04 01:05] VITALS: BP 153/100; TEMP 98; O2SAT 97
--- NOTE | 2019-09-04 07:34 | EKG ---
Test Date: 2019-09-03 Test Time: 19:05:53 Business Development Engineer: RENEE MEASUREMENT RESULTS: Intervals: Rate: 61 WA: 144 QRSD: 92 QT: 444 QTc: 446 Kerrick: P: 14 WA: 144 QRS: 19 T: 82 INTERPRETIVE STATEMENTS: Normal sinus rhythm Possible Left atrial enlargement Nonspecific ST abnormality Abnormal ECG Compared to ECG 09/03/2019 10:39:19 ST (T wave) deviation now present Sinus bradycardia no longer present Electronically Signed On 09-04-19 07:33:01 CDT by Rusty Ruby
== END 2019-09-03 23:58 | disposition short-term general hospital (02) ==
LOC: ER 18:38
DX: R29.810 Facial weakness (principal); I10 Essential (primary) hypertension; E78.00 Pure hypercholesterolemia, unspecified; I25.2 Old myocardial infarction; Z95.1 Presence of aortocoronary bypass graft; Z79.82 Long term (current) use of aspirin
CPT/HCPCS: 36415; 70450; 71045; 80048; 82947; 85025; 85610; 85730; 93005; 99285

== ENCOUNTER 2023-10-07 11:05 | Day surgery (SDC) | payer OTHER ==
[2023-09-25 14:20] LABS: Absolute Eosinophils 0.1 K/uL (0-0.5); Absolute Lymphocytes (CBC) 1.5 K/uL (0.7-4.9); Absolute Monocytes 0.4 K/uL (0.1-1.3); Absolute Neutrophil 3.7 K/uL (1.8-8.0); Basophils % 0.7 % (0-1.3); Eosinophils % 1.6 % (0-4.4); Hematocrit 41.1 % (39.6-49.0); Hemoglobin 13.5 g/dL (13.6-17.9); Lymphocytes % 26.5 % (15.3-44.8); MCH 29.4 pg (27.0-35.0); MCHC 32.8 g/dL (32.0-36.0); MCV 89.6 fL (80-100); MPV 10.9 fL (7.6-11.3); Monocytes % 6.3 % (3.3-12.3); Neutrophils % 64.9 % (41.7-73.7); Platelets 156 thou/uL (152-406); RBC Red Blood Cell Count 4.59 M/uL (4.33-5.43); Red Cell Distribution Width 14.2 % (12.1-15.2)
[2023-09-25 14:30] LABS: PT Prothrombin Time 12.3 SECONDS (9.5-12.5); PTT, Activated Partial Thromb 37.7 SECONDS (24.3-36.9); Protime INR 1.12
[2023-09-25 14:40] LABS: Anion Gap 6.9 mEq/L (5.0-15.0); Potassium 3.9 mEq/L (3.5-5.1)
--- NOTE | 2023-09-26 14:38 | EKG ---
Test Date: 2023-09-25 Test Time: 14:02:54 Plater Helper: BEBA MEASUREMENT RESULTS: Intervals: Rate: 49 WY: 134 QRSD: 98 QT: 494 QTc: 446 Maribel: P: 14 WY: 134 QRS: 26 T: 74 INTERPRETIVE STATEMENTS: Marked sinus bradycardia Abnormal ECG Compared to ECG 09/03/2019 19:05:53 Sinus rhythm no longer present ST (T wave) deviation no longer present Electronically Signed On 09-26-23 14:37:07 CDT by Darinel Champion
[2023-10-07] MEDS ORDERED: NA CHLORIDE 0.9% 500 ML ONE (11:31)
[2023-10-07] MEDS ORDERED: FENTANYL CITR 100 MCG/2 ML ONE (11:58)
[2023-10-07] MEDS ORDERED: HEPA 1000U/500MLS 2,000 UNIT/1,000 ML BAG IV ONE (11:58)
[2023-10-07] MEDS ORDERED: MIDAZOLAM HCL 2 MG/2 ML INJ ONE (11:58)
[2023-10-07] MEDS ORDERED: HEPARIN 10,000 UNIT/10 ML VIAL IV ONE ×2 (11:59→13:11)
[2023-10-07] MEDS ORDERED: TICAGRELOR 90 MG TABLET PO ONE (11:59)
[2023-10-07] MEDS ORDERED: ATROPINE SULF 1 MG/10 ML SYR IV ONE (11:59)
[2023-10-07] MEDS ORDERED: CLOPIDOGREL 75 MG TABLET ONE (11:59)
[2023-10-07] MEDS ORDERED: ASPIRIN 325 MG TAB ONE (12:00)
[2023-10-07] MEDS ORDERED: LIDOCAINE 1% 20 ML MDV ONE (12:02)
[2023-10-07 16:05] VITALS: O2SAT 100
[2023-10-07 16:51] VITALS: BP 149/87
[2023-10-07 17:11] VITALS: TEMP 97.8
--- NOTE | 2023-10-08 01:06 | OP ---
Date of Procedure: 10/07/2023 Surgeon: DARRELL AL Procedure Performed: 1.Selective coronary angiogram with bypass graft study. 2.Left heart catheterization. 3.PCI of severe proximal RCA stenosis, used 2.75 x 16 mm Synergy drug-eluting stent. Indication: Chest pain with abnormal stress test and large inferior ischemia. Access: Left common femoral artery 6-Italian closed with 6-Italian Angio-Seal. Complications: None. Bleeding: Less than 50 mL. Anesthesia: Total sedation time was 1 hour, used fentanyl and Versed. Description Of Procedure: After risks, benefits, and alternatives were explained, patient agreed to procedure and signed informed consent. The patient was brought into cardiac catheterization laborato , prepped and draped in sterile fashion and then I accessed the left common femoral artery using mi cropuncture kit, ultrasound guidance, and fluoroscopy and placed 6-Italian [place] sheath and took a 6-Italian JL4 catheter into the aortic root over a wire and engaged the left main, took standard views , exchanged for a 6-Italian JR4 catheter across aortic valve over the wire, measured the LVEDP. Pullb ack did not record any gradient and engaged the RCA and took standard views and then engaged the ALDRIDGE to LAD, took standard views and then exchanged for a 6-Italian JL4 guide, engaged the RCA and gave sy stemic heparin to assure ACT level above 250 throughout the procedure and loaded with 600 mg of Plavi x, 325 mg aspirin. Then, I took short Runthrough wire into the RCA, placed it distally and then usin g a 3.0 balloon, lesion was dilated very well and then placed a 2.75 x 60 mm Synergy drug-eluting ruth nt to high pressure to give a size of 3.3 mm. Excellent expansion and final result was satisfactory. Removed the wire. Final angiogram was satisfactory and removed the guide and sheath. A 6-Italian A ngio-Seal was used for closure after limited angiogram of the groin with good hemostasis. Findings: 1.Left main normal. 2.LAD: Approximately FLIGHT PARAMEDIC 100%. 3.Left circumflex: Has large left circ to OM1 branch stent and the circ becomes very small after th e OM takeoff and distally in the OM, there is focal 80% to 90% stenosis to large vessel. 4.RCA: Proximal 99% stenosis, status post successful PCI as above and the mid has diffuse 50% steno sis and PDA has 50% stenosis focally. Bypass Grafts: 1.Widely patent ALDRIDGE to LAD and patent subclavian artery. 2.Elevated LVEDP at 40 mmHg. Conclusion: 1.Severe LAD stenosis with patent ALDRIDGE to LAD. 2.Severe proximal RCA stenosis, status post successful PCI as above. 3.Severe distal OM branch, which is large vessel. Plan to be PCI in 4 to 6 weeks, re-eagle luation of the RCA at that time. Plan: 1.Aspirin, Plavix, high-dose statin. 2.In 4 to 6 weeks to plan for PCI of the OM1 branch and further optimization of the RCA if need be. /MODL Voice ID: [id number] Report ID: [id number]
== END 2023-10-07 16:54 | disposition home or self-care (01) ==
LOC: CCL 11:05
PROVIDERS: ATTEND Internal Medicine
DX: I25.10 Atherosclerotic heart disease of native coronary artery without angina pectoris (principal); I25.82 Chronic total occlusion of coronary artery; I10 Essential (primary) hypertension; E78.5 Hyperlipidemia, unspecified; I48.0 Paroxysmal atrial fibrillation; Z95.1 Presence of aortocoronary bypass graft; Z95.5 Presence of coronary angioplasty implant and graft; Z86.73 Personal history of transient ischemic attack (TIA), and cerebral infarction without residual deficits; Z79.01 Long term (current) use of anticoagulants; Z79.899 Other long term (current) drug therapy
CPT/HCPCS: 93005; 85025; 80048; 36415; 83721; 85610; 85347; 85730; 93459; 76937; C1893; C1760; Q9967; C1887; C1725; C9600; J2001; J2250; J3010; J7040; 93458; 99152; 99153; J0461